=== PATIENT | male | born 1940 | race Caucasian/White ===

== ENCOUNTER 2016-12-18 21:23 | Inpatient (IN) | payer OTHER ==
[~2016-12-18] VITALS: Ht 172.7 cm; Wt 108.0 kg
[~2016-12-18 21:23] MED LIST: ASPI-435 PO; B-COTAB18 PO; BYTI10 SC; GLC500 PO; GLUCPOW41 PO; INSDGI SC; LOSA100T26 PO; MULTTAB58 PO; SIMV40TA2 PO
[2016-12-18] MEDS ORDERED: CEFTRIAXONE SOD INJ 1 GM ADDVIAL IV STA (21:42)
[2016-12-18] MEDS ORDERED: DIPHTHERIA/TETANUS/PERTUSSIS 0.5 ML SYR/VIAL IM. ONE (21:45)
[2016-12-18] MEDS ORDERED: EXEN1INJ3 INJ (21:48)
[2016-12-18] MEDS ORDERED: ATOR-24 PO (21:48)
[2016-12-18] MEDS ORDERED: METF-384 PO (21:48)
[2016-12-18] MEDS ORDERED: METO50TA16 PO (21:48)
[2016-12-18] MEDS ORDERED: HYZ/50125 PO (21:48)
[2016-12-18 22:34] LABS: BASO % 0.7 %; BASO ABS # 0.06 K/uL (0-0.2); COMPLETE YES; EOS % 3.7 %; HEMATOCRIT 36.9 % (42-52); IG% 0.3 %; LYMPH % 22.2 %; LYMPH ABS # 2.04 K/uL (1.2-3.4); MEAN CELL VOLUME 87.2 fL (80-100); MEAN CORPUSCULAR HEMOGLOBIN 28.6 pg (25-34); MEAN CORPUSCULAR HGB CONC 32.8 g/dl (32-36); MEAN PLATELET VOLUME 10.2 fL (7.4-10.4); MONO % 6.2 %; NEUT % 66.9 %; PLATELET COUNT 300 K/uL (130-400); RED BLOOD COUNT 4.23 M/uL (4.7-6.1); WHITE BLOOD COUNT 9.19 K/uL (4.8-10.8)
[2016-12-18 22:37] LABS: PROTHROMBIN TIME (PATIENT) 10.5 SECONDS (9.0-12.0)
[2016-12-18 22:54] LABS: CALCIUM 8.8 mg/dl (8.5-10.1); CREATININE 0.86 mg/dl (0.60-1.40); POTASSIUM 3.7 mmol/L (3.5-5.1)
[2016-12-18 22:57] LABS: ALB/GLOB RATIO 0.9 (0.9-2)
--- NOTE | 2016-12-18 23:15 | DIAGNOSTIC IMAGING REPORT ---
LEFT TIBIA/FIBULA 2 VIEWS ROUTINE, LEFT ANKLE MIN 3 VIEWS ROUTINE CLINICAL HISTORY: Left leg and ankle injury with pain. COMPARISON STUDY: None. FINDINGS: No acute fracture or dislocation. Mild vascular calcification. Surgical clips along the medial lower leg. Mild soft tissue edema throughout the lower leg and ankle. Punctate ossific densities adjacent to the medial malleolus are consistent with old avulsion injuries. Plantar and posterior calcaneal spurs. IMPRESSION: Mild soft tissue edema within the left lower leg and left ankle. No acute fracture or dislocation. Electronically signed by: Jordy Ayala M.D. 12/18/2016 11:14 PM Dictated Date/Time: 12/18/2016 11:11 PM
[2016-12-19] MEDS ORDERED: CEPHALEXIN 500MG HOME PACK 1 EA BTL PO ONE (00:30)
[2016-12-19] MEDS ORDERED: SEPTRA DS HOME PACK 1 EA VIAL PO ONE (00:30)
--- NOTE | 2016-12-19 00:33 | EMERGENCY ROOM VISIT NOTE ---
ED Visit Note First contact with patient: 21:31 Patient seen by me, patient has a leg wound is a diabetic; has a left lower extremity infection and has been on outpatient antibiotics. Patient has worsening erythema and weepiness. I reviewed the patient's lab work. Patient was given IV Rocephin by the physician assistant front desk manager. On my assessment I would recommend admission for cellulitis to the affected the patient's diabetic in this wound is not improving after outpatient antibiotics. Patient will be admitted for further treatment and we will add vancomycin as well Current/Historical Medications Scheduled Aspirin (Aspirin 81), 81 MG PO DAILY Atorvastatin (Lipitor), 40 MG PO DAILY B-Complex Vitamins (Vitamin B Complex), 1 CAP PO MWF Exenatide (Bydureon), 1 DOSE INJ WK Hctz/Losartan (Hyzaar 12.5MG/50MG), 1 TAB PO DAILY Metformin Hcl (Glucophage), 1,000 MG PO BID Metoprolol Tartrate (Lopressor) (Lopressor), 50 MG PO BID Allergies Coded Allergies: No Known Allergies (Unverified , 08/16/06) Vital Signs Date Time Temp Pulse Resp B/P (MAP) Pulse Ox O2 Delivery O2 Flow Rate FiO2 12/18/16 23:01 83 19 133/53 96 Room Air 12/18/16 22:30 84 20 143/62 95 Room Air 12/18/16 22:26 84 12/18/16 22:15 86 24 134/65 97 Room Air 12/18/16 22:00 97 Room Air 12/18/16 21:28 36.8 90 20 154/78 96 Room Air Laboratory Results 12/18/16 22:10 Red Blood Count 4.23, Mean Corpuscular Volume 87.2, Mean Corpuscular Hemoglobin 28.6, Mean Corpuscular Hemoglobin Concent 32.8, Mean Platelet Volume 10.2, Neutrophils (%) (Auto) 66.9, Lymphocytes (%) (Auto) 22.2, Monocytes (%) (Auto) 6.2, Eosinophils (%) (Auto) 3.7, Basophils (%) (Auto) 0.7, Neutrophils # (Auto) 6.15, Lymphocytes # (Auto) 2.04, Monocytes # (Auto) 0.57, Eosinophils # (Auto) 0.34, Basophils # (Auto) 0.06 12/18/16 22:10 Test 12/18/16 22:10 White Blood Count 9.19 K/uL (4.8-10.8) Red Blood Count 4.23 M/uL (4.7-6.1) Hemoglobin 12.1 g/dL (14.0-18.0) Hematocrit 36.9 % (42-52) Mean Corpuscular Volume 87.2 fL (80-100) Mean Corpuscular Hemoglobin 28.6 pg (25-34) Mean Corpuscular Hemoglobin Concent 32.8 g/dl (32-36) Platelet Count 300 K/uL (130-400) Mean Platelet Volume 10.2 fL (7.4-10.4) Neutrophils (%) (Auto) 66.9 % Lymphocytes (%) (Auto) 22.2 % Monocytes (%) (Auto) 6.2 % Eosinophils (%) (Auto) 3.7 % Basophils (%) (Auto) 0.7 % Neutrophils # (Auto) 6.15 K/uL (1.4-6.5) Lymphocytes # (Auto) 2.04 K/uL (1.2-3.4) Monocytes # (Auto) 0.57 K/uL (0.11-0.59) Eosinophils # (Auto) 0.34 K/uL (0-0.5) Basophils # (Auto) 0.06 K/uL (0-0.2) RDW Standard Deviation 42.7 fL (36.4-46.3) RDW Coefficient of Variation 13.4 % (11.5-14.5) Immature Granulocyte % (Auto) 0.3 % Immature Granulocyte # (Auto) 0.03 K/uL (0.00-0.02) Prothrombin Time 10.5 SECONDS (9.0-12.0) Prothromb Time International Ratio 1.0 (0.9-1.1) Activated Partial Thromboplast Time 27.2 SECONDS (21.0-31.0) Partial Thromboplastin Ratio 1.0 Anion Gap 8.0 mmol/L (3-11) Est Creatinine Clear Calc Drug Dose 88.0 ml/min Estimated GFR () 98.3 Estimated GFR (Non- 84.8 BUN/Creatinine Ratio 18.0 (10-20) Calcium Level 8.8 mg/dl (8.5-10.1) Total Bilirubin 0.3 mg/dl (0.2-1) Aspartate Amino Transf (AST/SGOT) 14 U/L (15-37) Alanine Aminotransferase (ALT/SGPT) 22 U/L (12-78) Alkaline Phosphatase 99 U/L (45-117) Total Protein 6.8 gm/dl (6.4-8.2) Albumin 3.2 gm/dl (3.4-5.0) Globulin 3.6 gm/dl (2.5-4.0) Albumin/Globulin Ratio 0.9 (0.9-2) Medications Administered Medications (Trade) Dose Ordered Sig/Irina Route Start Time Stop Time Status Last Admin Dose Admin Diphtheria/ Pertussis/Tetanus Vacc (Adacel Inj) 0.5 ml ONCE ONCE IM. 12/18/16 21:45 12/18/16 21:46 DC 12/18/16 22:12 0.5 ML Ceftriaxone Sodium (Rocephin Inj) 1 gm NOW STAT IV 12/18/16 21:42 12/18/16 21:44 DC 12/18/16 22:11 1 GM Departure Information Referrals Ancelmo Grimes M.D. (PCP) Patient Instructions My [facility]
[2016-12-19] MEDS ORDERED: VANCOMYCIN INJ 2,000 MG in SODIUM CHLORIDE 0.9% 500ML 500 ML IV STA (00:41)
--- NOTE | 2016-12-19 01:41 | EMERGENCY ROOM VISIT NOTE ---
History First contact with patient: 21:31 Chief Complaint: WOUND INFECTION Stated Complaint: PAIN IN LEFT LEG, INJURED Nursing Triage Summary: chirag fell on L almeida on Thursday. now with redness to L almeida and leg. scabbed area length of almeida. dry History of Present Illness The patient is a 76 year old male who presents to the Emergency Room with complaints of left lower leg pain and swelling after a block dropped on his leg a few days ago that caused an abrasion to the area. No prior fracture to this area. Blood sugars have been around 120. Tetanus is not current. He is around grandchildren that are less than 6 years of age. Patient denies chest pain, dyspnea, fever, chills, numbness, tingling, abdominal pain, vomiting, diarrhea. No history DVT or PE. Review of Systems See HPI for pertinent positives & negatives. A total of 10 systems reviewed and were otherwise negative. Past Medical/Surgical History Medical Problems: (1) Cellulitis Diabetes, hypertension, hyperlipidemia, aortic valve replacement not on anticoagulation Social History Smoking Status: Current Every Day Smoker Alcohol Use: none Drug Use: none Occupation Status: retired Current/Historical Medications Scheduled Aspirin (Aspirin 81), 81 MG PO DAILY Atorvastatin (Lipitor), 40 MG PO DAILY B-Complex Vitamins (Vitamin B Complex), 1 CAP PO MWF Exenatide (Bydureon), 1 DOSE INJ WK Hctz/Losartan (Hyzaar 12.5MG/50MG), 1 TAB PO DAILY Metformin Hcl (Glucophage), 1,000 MG PO BID Metoprolol Tartrate (Lopressor) (Lopressor), 50 MG PO BID Physical Exam Vital Signs Date Time Temp Pulse Resp B/P (MAP) Pulse Ox O2 Delivery O2 Flow Rate FiO2 12/19/16 01:10 77 20 129/61 96 Room Air 12/19/16 00:01 82 24 126/61 97 Room Air 12/18/16 23:06 85 26 133/53 96 Room Air 12/18/16 23:01 83 19 133/53 96 Room Air 12/18/16 22:30 84 20 143/62 95 Room Air 12/18/16 22:26 84 12/18/16 22:15 86 24 134/65 97 Room Air 12/18/16 22:00 97 Room Air 12/18/16 21:28 36.8 90 20 154/78 96 Room Air Physical Exam VITALS: Vitals are noted on the nurse's note and reviewed by myself. Vital signs stable. GENERAL: Pleasant male, in no acute distress, nondiaphoretic, well-developed well-nourished. SKIN: The skin was without rashes . There is no tenting of the skin. Capillary reflex less than 2 seconds. HEAD: Normocephalic atraumatic. EARS: External auditory canals clear, tympanic membranes pearly gentile without erythema or effusion bilaterally. EYES: Pupils equal round and reactive to light and accommodation. Conjunctivae without injection, sclerae without icterus. Extraocular movements intact. NOSE: Patent, turbinates without inflammation or discharge. MOUTH: Mucous membranes moist. Pharynx without erythema or exudate. Uvula midline. Airway patent. Tongue does not deviate. NECK: Supple without nuchal rigidity. No lymphadenopathy. No thyromegaly. Cervical spine is nontender. No JVD. HEART: Regular rate and rhythm LUNGS: Clear to auscultation bilaterally without wheezes, rales or rhonchi. No dullness to percussion. No retractions or accessory muscle use. ABDOMEN: Positive bowel sounds x 4. Normal tympanic percussion. Soft, nontender, without masses or organomegaly. Tinajero sign negative. No guarding or rebound tenderness. MUSCULOSKELETAL: No muscle atrophy, noted. Left lower leg with large abrasion present that is erythematous and edematous concerning for infection with contusion present ,slightly edematous to the ankle that is tender to palpation from the mid tib-fib down to the ankle with no obvious deformity. Pedal pulses +2 equal present bilaterally. Right anterior midshin with abrasion present without signs of infection. NEURO: Patient was alert and oriented to person place and time. Normal sensation to light and sharp touch. No focal neurological deficits. Medical Decision & Procedures Laboratory Results 12/18/16 22:10 Red Blood Count 4.23, Mean Corpuscular Volume 87.2, Mean Corpuscular Hemoglobin 28.6, Mean Corpuscular Hemoglobin Concent 32.8, Mean Platelet Volume 10.2, Neutrophils (%) (Auto) 66.9, Lymphocytes (%) (Auto) 22.2, Monocytes (%) (Auto) 6.2, Eosinophils (%) (Auto) 3.7, Basophils (%) (Auto) 0.7, Neutrophils # (Auto) 6.15, Lymphocytes # (Auto) 2.04, Monocytes # (Auto) 0.57, Eosinophils # (Auto) 0.34, Basophils # (Auto) 0.06 12/18/16 22:10 Test 12/18/16 22:10 White Blood Count 9.19 K/uL (4.8-10.8) Red Blood Count 4.23 M/uL (4.7-6.1) Hemoglobin 12.1 g/dL (14.0-18.0) Hematocrit 36.9 % (42-52) Mean Corpuscular Volume 87.2 fL (80-100) Mean Corpuscular Hemoglobin 28.6 pg (25-34) Mean Corpuscular Hemoglobin Concent 32.8 g/dl (32-36) Platelet Count 300 K/uL (130-400) Mean Platelet Volume 10.2 fL (7.4-10.4) Neutrophils (%) (Auto) 66.9 % Lymphocytes (%) (Auto) 22.2 % Monocytes (%) (Auto) 6.2 % Eosinophils (%) (Auto) 3.7 % Basophils (%) (Auto) 0.7 % Neutrophils # (Auto) 6.15 K/uL (1.4-6.5) Lymphocytes # (Auto) 2.04 K/uL (1.2-3.4) Monocytes # (Auto) 0.57 K/uL (0.11-0.59) Eosinophils # (Auto) 0.34 K/uL (0-0.5) Basophils # (Auto) 0.06 K/uL (0-0.2) RDW Standard Deviation 42.7 fL (36.4-46.3) RDW Coefficient of Variation 13.4 % (11.5-14.5) Immature Granulocyte % (Auto) 0.3 % Immature Granulocyte # (Auto) 0.03 K/uL (0.00-0.02) Prothrombin Time 10.5 SECONDS (9.0-12.0) Prothromb Time International Ratio 1.0 (0.9-1.1) Activated Partial Thromboplast Time 27.2 SECONDS (21.0-31.0) Partial Thromboplastin Ratio 1.0 Anion Gap 8.0 mmol/L (3-11) Est Creatinine Clear Calc Drug Dose 88.0 ml/min Estimated GFR () 98.3 Estimated GFR (Non- 84.8 BUN/Creatinine Ratio 18.0 (10-20) Calcium Level 8.8 mg/dl (8.5-10.1) Total Bilirubin 0.3 mg/dl (0.2-1) Aspartate Amino Transf (AST/SGOT) 14 U/L (15-37) Alanine Aminotransferase (ALT/SGPT) 22 U/L (12-78) Alkaline Phosphatase 99 U/L (45-117) Total Protein 6.8 gm/dl (6.4-8.2) Albumin 3.2 gm/dl (3.4-5.0) Globulin 3.6 gm/dl (2.5-4.0) Albumin/Globulin Ratio 0.9 (0.9-2) Medications Administered Medications (Trade) Dose Ordered Sig/Irina Route Start Time Stop Time Status Last Admin Dose Admin Diphtheria/ Pertussis/Tetanus Vacc (Adacel Inj) 0.5 ml ONCE ONCE IM. 12/18/16 21:45 12/18/16 21:46 DC 12/18/16 22:12 0.5 ML Ceftriaxone Sodium (Rocephin Inj) 1 gm NOW STAT IV 12/18/16 21:42 12/18/16 21:44 DC 12/18/16 22:11 1 GM Vancomycin HCl 2000 mg/Sodium Chloride 540 ml @ 200 mls/hr ONE STAT IV 12/19/16 00:41 12/19/16 03:22 12/19/16 01:30 200 MLS/HR ED Course Prior records reviewed and summarized as above. Triage Nursing notes reviewed. Additional history obtained from family. The patient's history was concerning for swelling and redness of the skin. Differential diagnosis: Etiologies such as cellulitis, abscess, MRSA infection, DVT, necrotizing fasciitis, dermatitis, drug eruption, as well as others were entertained.. Physical examination: The physical examination was consistent with cellulitis ER treatment provided: Rocephin, tetanus On reassessment the patient felt better. Diagnostics interpreted by me: The labs revealed hyperglycemia without DKA Imaging studies: X-rays of the almeida and ankle are negative for fracture per radiology. Ultrasound was negative for DVT per radiology Consultation: A consultation was placed with Dr Shaw, hospitalist. The case was discussed and diagnostics were reviewed. The patient was evaluated in the ER for further treatment. This appears to be isolated cellulitis. Patient is diabetic and will be evaluated for possible admission. He was given Rocephin and vancomycin. His blood sugars are slightly elevated without DKA. By the evaluation outlined above emergent etiologies such as abscess, necrotizing fasciitis, DVT, as well as others were deemed relatively unlikely. The pt informed about the findings as listed above. All questions were answered and pleased with the treatment. Case reviewed with my attending. Medical Decision as above Medication Reconcilliation Current Medication List: was personally reviewed by me Blood Pressure Screening Patient's blood pressure: Elevated blood pressure Blood pressure disposition: Elevated BP felt to be situational Impression Primary Impression: Left leg cellulitis Additional Impression: Infected abrasion Departure Information Dispostion Being Evaluated By Hospitalist Condition GOOD Referrals Ancelmo Grimes M.D. (PCP) Patient Instructions My [facility] Additional Instructions Problem Qualifiers
[2016-12-19] MEDS ORDERED: ACETAMINOPHEN 325 MG TAB PO PRN (01:45)
[2016-12-19] MEDS ORDERED: GLUCAGON FOR INJ 1 MG VIAL SQ PRN (02:00)
[2016-12-19] MEDS ORDERED: GLUCOSE 40% GEL 15 GM TUBE PO PRN (02:00)
[2016-12-19] MEDS ORDERED: GLUCOSE 10 TABS/TUBE PO PRN (02:00)
[2016-12-19] MEDS ORDERED: DEXTROSE 50% 50 ML SYR IV PRN (02:00)
[2016-12-19 02:03] VITALS: BP 135/72; PULSE 74; TEMP 36.9; O2SAT 98; Ht 172.7 cm; Wt 108.0 kg
[2016-12-19] MEDS ORDERED: SODIUM CHLORIDE 0.9% 1000ML 1,000 ML IV SCH (02:45)
[2016-12-19] MEDS ORDERED: VANCOMYCIN CONSULT ACTIVE PRN (03:13)
[2016-12-19] MEDS ORDERED: PIPERACILL/TAZOBAC CONSULT ACTIVE PRN (03:15)
[2016-12-19] MEDS ORDERED: PIPERACILL/TAZOBAC IV 4.5 GM in DEXTROSE 5% 100ML IV ONE (04:00)
[2016-12-19] MEDS ORDERED: PNEUMOCOCCAL ADMINISTRATION CHARGE ONE ×2 (05:15→08:00)
[2016-12-19] MEDS: HEPARIN SOD 5000 UNIT/0.5 ML CARP SQ SCH ×3 (06:00→20:46)
--- NOTE | 2016-12-19 06:35 | DIAGNOSTIC IMAGING REPORT ---
ULTRASOUND VENOUS DOPP LOWER EXT UNILAT CLINICAL HISTORY: 6 left lower extremity swelling. Pain. COMPARISON STUDY: No previous studies for comparison. FINDINGS: Real-time and color flow Doppler imaging were performed. Flow was seen within the femoral, popliteal and calf veins with no intraluminal thrombus demonstrated. The saphenous vein is patent. IMPRESSION: No evidence of left lower extremity DVT. Electronically signed by: Husam Demarco M.D. 12/19/2016 6:34 AM Dictated Date/Time: 12/19/2016 6:34 AM
[2016-12-19] MEDS: PIPERACILL/TAZOBAC IV 4.5 GM in DEXTROSE 5% 100ML IV SCH ×2 (07:25→15:37)
[2016-12-19 07:49] VITALS: BP 131/74; PULSE 77; TEMP 36.5; O2SAT 96
[2016-12-19 08:00] VITALS: O2SAT 96
[2016-12-19] MEDS ORDERED: PNEUMOCOCCAL POLYSACCHARIDES 25 MCG/0.5 ML VIAL/SYR IM. ONE (08:00)
--- NOTE | 2016-12-19 08:27 | History and Physical ---
History & Physical Date & Time of Service: Dec 19, 2016 at 08:17 Chief Complaint: Cellulitis Primary Care Physician: Ancelmo Grimes M.D. History of Present Illness Source: patient, clinic records, hospital records 76 year old male with history of CAD, CABG, S/P Aortic Valve repair, DM presenting with nonhealing wound and lower leg swelling on the left. 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 He sustained wounds on his anterior left lower leg, for which patient applies dressings and topical ointment at home. He noticed that the wound was healing slowly, with occasional discharge, and was getting more red, swollen, and painful, to the point that he is unable to walk properly due to left ankle discomfort. He was then advised to go to ER by his family. At the ER, patient was febrile, no leukocytosis, xray of the left lower leg and foot without fractures. On exam, patient is comfortable. Moderate pain on the affected areas. Denies other symptoms. Family History Cancer- mother, DM father Social History Smoking Status: Former Smoker Drug Use: none Occupational Status: retired Multi-Drug Resistant Organisms History of MDRO: No Allergies Coded Allergies: No Known Allergies (Unverified , 08/16/06) Home Medications Scheduled Aspirin (Aspirin 81), 81 MG PO DAILY Atorvastatin (Lipitor), 40 MG PO DAILY B-Complex Vitamins (Vitamin B Complex), 1 CAP PO MWF Exenatide (Bydureon), 1 DOSE INJ WK Hctz/Losartan (Hyzaar 12.5MG/50MG), 1 TAB PO DAILY Metformin Hcl (Glucophage), 1,000 MG PO BID Metoprolol Tartrate (Lopressor) (Lopressor), 50 MG PO BID Review of Systems Constitutional- no fever; no weight loss Eyes- no acute visual changes ENT- no sinus drainage; no pharyngitis Pulmonary- no cough, no wheezing, no shortness of breath Cardiac- no chest pain, no palpitations, no orthopnea, no dependent edema GI- no nausea, no vomiting, no diarrhea, no melena, no hematochezia - no dysuria, no hematuria Musculoskeletal- no arthralgias, no myalgias Derm- no rashes, no new skin lesions, no changing skin lesions Hematologic- no unusual bruising, no unusual bleeding Lymphatics- no adenopathy Endocrine- no polyuria or polydipsia; no heat or cold intolerance Neuro- no headaches, no focal neurologic symptoms Psych- no anxiety, no depression Physical Exam Vital Signs Date Time Temp Pulse Resp B/P (MAP) Pulse Ox O2 Delivery O2 Flow Rate FiO2 12/19/16 07:49 36.5 77 18 131/74 (93) 96 12/19/16 02:03 36.9 74 16 135/72 98 Room Air 12/19/16 02:00 37.0 77 20 136/78 98 Room Air 12/19/16 01:10 77 20 129/61 96 Room Air 12/19/16 00:01 82 24 126/61 97 Room Air 12/18/16 23:06 85 26 133/53 96 Room Air 12/18/16 23:01 83 19 133/53 96 Room Air 12/18/16 22:30 84 20 143/62 95 Room Air 12/18/16 22:26 84 12/18/16 22:15 86 24 134/65 97 Room Air 12/18/16 22:00 97 Room Air 12/18/16 21:28 36.8 90 20 154/78 96 Room Air General Appearance: WD/WN, no apparent distress Head: normocephalic, atraumatic Eyes: normal inspection, EOMI, sclerae normal ENT: normal ENT inspection, hearing grossly normal, pharynx normal Neck: supple, no adenopathy, thyroid normal, no JVD, trachea midline Respiratory/Chest: chest non-tender, lungs clear, normal breath sounds, no respiratory distress, no accessory muscle use Cardiovascular: regular rate, rhythm, no edema, no gallop, no murmur Abdomen/GI: normal bowel sounds, non tender, soft, no organomegaly Back: normal inspection, no CVA tenderness Extremities/Musculoskelatal: + pertinent finding (left lower leg: (+) open wounds on the anterior aspect, no discharge with surrounding moderate edema and erythema, (+) tenderness) Neurologic/Psych: division supervisor II-XII nml as tested, no motor/sensory deficits, alert, normal mood/affect, oriented x 3 Skin: normal color, warm/dry, no rash Lymphatic: no adenopathy Diagnostics Laboratory Results Results Past 24 Hours Test 12/18/16 22:10 12/19/16 06:59 Range/Units White Blood Count 9.19 4.8-10.8 K/uL Red Blood Count 4.23 4.7-6.1 M/uL Hemoglobin 12.1 14.0-18.0 g/dL Hematocrit 36.9 42-52 % Mean Corpuscular Volume 87.2 80-100 fL Mean Corpuscular Hemoglobin 28.6 25-34 pg Mean Corpuscular Hemoglobin Concent 32.8 32-36 g/dl Platelet Count 300 130-400 K/uL Mean Platelet Volume 10.2 7.4-10.4 fL Neutrophils (%) (Auto) 66.9 % Lymphocytes (%) (Auto) 22.2 % Monocytes (%) (Auto) 6.2 % Eosinophils (%) (Auto) 3.7 % Basophils (%) (Auto) 0.7 % Neutrophils # (Auto) 6.15 1.4-6.5 K/uL Lymphocytes # (Auto) 2.04 1.2-3.4 K/uL Monocytes # (Auto) 0.57 0.11-0.59 K/uL Eosinophils # (Auto) 0.34 0-0.5 K/uL Basophils # (Auto) 0.06 0-0.2 K/uL RDW Standard Deviation 42.7 36.4-46.3 fL RDW Coefficient of Variation 13.4 11.5-14.5 % Immature Granulocyte % (Auto) 0.3 % Immature Granulocyte # (Auto) 0.03 0.00-0.02 K/uL Prothrombin Time 10.5 9.0-12.0 SECONDS Prothromb Time International Ratio 1.0 0.9-1.1 Activated Partial Thromboplast Time 27.2 21.0-31.0 SECONDS Partial Thromboplastin Ratio 1.0 Sodium Level 137 136-145 mmol/L Potassium Level 3.7 3.5-5.1 mmol/L Chloride Level 101 98-107 mmol/L Carbon Dioxide Level 28 21-32 mmol/L Anion Gap 8.0 3-11 mmol/L Blood Urea Nitrogen 16 7-18 mg/dl Creatinine 0.86 0.60-1.40 mg/dl Est Creatinine Clear Calc Drug Dose 88.0 ml/min Estimated GFR () 98.3 Estimated GFR (Non- 84.8 BUN/Creatinine Ratio 18.0 10-20 Random Glucose 240 70-99 mg/dl Calcium Level 8.8 8.5-10.1 mg/dl Total Bilirubin 0.3 0.2-1 mg/dl Aspartate Amino Transf (AST/SGOT) 14 15-37 U/L Alanine Aminotransferase (ALT/SGPT) 22 12-78 U/L Alkaline Phosphatase 99 45-117 U/L Total Protein 6.8 6.4-8.2 gm/dl Albumin 3.2 3.4-5.0 gm/dl Globulin 3.6 2.5-4.0 gm/dl Albumin/Globulin Ratio 0.9 0.9-2 Bedside Glucose 161 70-99 mg/dl Microbiology Results 12/19/16 Blood Culture, Received Pending 12/19/16 Blood Culture, Received Pending 12/19/16 Gram Stain, Received Pending 12/19/16 Wound Culture, Received Pending Impression Assessment and Plan 76 year old male with history of CAD, CABG, S/P Aortic Valve repair, DM presenting with nonhealing wound and lower leg swelling on the left. 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 Y/N: Yes Risk Level: Moderate Given or contraindicated: Unfractionated heparin SQ
[2016-12-19] MEDS: ATORVASTATIN 20 MG TAB PO SCH (08:31)
[2016-12-19] MEDS: ASPIRIN 81 MG ECTAB PO SCH (08:32)
[2016-12-19] MEDS: INSULIN ASPART 100 UNITS/ML 3 ML PEN SC SCH ×4 (08:34→20:38)
[2016-12-19] MEDS: METOPROLOL TARTRATE 50 MG TAB PO SCH ×2 (08:35→19:39)
--- NOTE | 2016-12-19 09:28 | Pharmacy Progress Note ---
Pharmacy Antibiotic Consult Date of Service: Dec 19, 2016. Pharmacy Dosing Scope Pharmacy is consulted to initiate vancomycin/zosyn IV dosing therapy, order appropriate labs and adjust drug dose/frequency. Subjective The patient is a 76 year old male admitted on Dec 19, 2016 at 01:38. Objective Height (Feet): 5 Height (Inches): 8.00 Weight (Kilograms): 108.000 Lab Results (24hrs): Test 12/18/16 22:10 12/19/16 06:59 White Blood Count 9.19 K/uL (4.8-10.8) Red Blood Count 4.23 M/uL (4.7-6.1) Hemoglobin 12.1 g/dL (14.0-18.0) Hematocrit 36.9 % (42-52) Mean Corpuscular Volume 87.2 fL (80-100) Mean Corpuscular Hemoglobin 28.6 pg (25-34) Mean Corpuscular Hemoglobin Concent 32.8 g/dl (32-36) Platelet Count 300 K/uL (130-400) Mean Platelet Volume 10.2 fL (7.4-10.4) Neutrophils (%) (Auto) 66.9 % Lymphocytes (%) (Auto) 22.2 % Monocytes (%) (Auto) 6.2 % Eosinophils (%) (Auto) 3.7 % Basophils (%) (Auto) 0.7 % Neutrophils # (Auto) 6.15 K/uL (1.4-6.5) Lymphocytes # (Auto) 2.04 K/uL (1.2-3.4) Monocytes # (Auto) 0.57 K/uL (0.11-0.59) Eosinophils # (Auto) 0.34 K/uL (0-0.5) Basophils # (Auto) 0.06 K/uL (0-0.2) RDW Standard Deviation 42.7 fL (36.4-46.3) RDW Coefficient of Variation 13.4 % (11.5-14.5) Immature Granulocyte % (Auto) 0.3 % Immature Granulocyte # (Auto) 0.03 K/uL (0.00-0.02) Prothrombin Time 10.5 SECONDS (9.0-12.0) Prothromb Time International Ratio 1.0 (0.9-1.1) Activated Partial Thromboplast Time 27.2 SECONDS (21.0-31.0) Partial Thromboplastin Ratio 1.0 Sodium Level 137 mmol/L (136-145) Potassium Level 3.7 mmol/L (3.5-5.1) Chloride Level 101 mmol/L (98-107) Carbon Dioxide Level 28 mmol/L (21-32) Anion Gap 8.0 mmol/L (3-11) Blood Urea Nitrogen 16 mg/dl (7-18) Creatinine 0.86 mg/dl (0.60-1.40) Est Creatinine Clear Calc Drug Dose 88.0 ml/min Estimated GFR () 98.3 Estimated GFR (Non- 84.8 BUN/Creatinine Ratio 18.0 (10-20) Random Glucose 240 mg/dl (70-99) Calcium Level 8.8 mg/dl (8.5-10.1) Total Bilirubin 0.3 mg/dl (0.2-1) Aspartate Amino Transf (AST/SGOT) 14 U/L (15-37) Alanine Aminotransferase (ALT/SGPT) 22 U/L (12-78) Alkaline Phosphatase 99 U/L (45-117) Total Protein 6.8 gm/dl (6.4-8.2) Albumin 3.2 gm/dl (3.4-5.0) Globulin 3.6 gm/dl (2.5-4.0) Albumin/Globulin Ratio 0.9 (0.9-2) Bedside Glucose 161 mg/dl (70-99) Micro Results: Date/Time Source Procedure Growth Status 12/19/16 06:03 Blood Blood Culture Pending Received 12/19/16 05:50 Blood Blood Culture Pending Received 12/19/16 06:05 Drainage - Surface Leg Lower Left Gram Stain Pending Received 12/19/16 06:05 Drainage - Surface Leg Lower Left Wound Culture Pending Received Assessment & Plan Assessment: Patient is 76 yo male with history of CAD, CABG, Aortic valve repair, DM admitted for a nonhealing wound and LLE swelling. Patient was treating outpatient with topical ointment and dressing. Vancomycin/zosyn initiated for antibiotic coverage. Patient Ht 172.7 cm, Wt 108 kg, Vdf 0.6, SCr 0.86, CrCl 71.8, Ke 0.064, T1/2 ~ 11 hours. Plan: * Loading dose 2000 mg (18.5 mg/kg) * Maintenance dose: 1250 mg q12H (11.5 mg/kg) * less than traditional dose due to risk of accumulation * Goal trough level estimate 15-20 mcg/mL * Trough level ordered for 12/20 @ 2330 * Zosyn 4.5 gm q8H for CrCl >20 mL/min Pharmacy will continue to follow and will adjust dose/frequency as necessary. Thank you
[2016-12-19 10:39] VITALS: BP 146/71; PULSE 75; O2SAT 98
[2016-12-19] MEDS: VANCOMYCIN INJ 1,250 MG in SODIUM CHLORIDE 0.9% 250ML 250 ML IV SCH (11:37)
[2016-12-19] MEDS ORDERED: NURSING VERBAL MED ORDER ONE (15:00)
[2016-12-19 15:15] VITALS: BP 134/69; PULSE 72; TEMP 36.6; O2SAT 98
--- NOTE | 2016-12-19 17:20 | Progress Note ---
Internal Med Progress Note Date of Service: Dec 19, 2016. Provider Documentation: SUBJECTIVE: feels much better , no pain or discomfort on left leg the redness has improved able to walk and bear wt no fever or chills OBJECTIVE: Vital Signs-as noted below Exam: General-no sign of distress Eyes-sclera non icteric ENT-NAD Neck-no JVD , Lungs-CTA Heart-regular s1/S2 Abdomen-soft , non tender Extremities-left lower ext : crusted healing lesion on left knee, wound on left lower leg -no drainage , bandage present , mild surrounding erythema Neuro-AAO x3, no focal deficit Lab data as noted below. ASSESSMENT & PLAN: 76 year old male with history of CAD, CABG, S/P Aortic Valve repair, DM presenting with nonhealing wound and lower leg swelling on the left. INFECTED LEFT LOWER WOUND, WITH CELLULITIS -had traumatic injury > 1 week back presented with non healing wound , surrounding erythema with evidence of cellulitis - no signs of sepsis - Xray: no fracture - wound and blood cultures ordered - pt will be continued with IV broad spectrum Abx Vanc + Zosyn IV till further improvement of cellulitis plan to transition to suitable oral agent in next 24-48 hrs will need 10 days of tx - wound care consulted-appreciate input PT/OT CAD/CABG, History of Aortic Valve Replacement - stable, no complain of chest pain or SOB , no palpitation or dizzy spell continue Metoprolol, Losartan, hold HCTZ continue Aspirin, Statin DM 2 - hold Exenatide, Metformin - ISS Heparin for DVT prophylaxis Full code per patient Disposition independent, anticipate d/c home when medically stable Vital Signs: Date Time Temp Pulse Resp B/P (MAP) Pulse Ox O2 Delivery O2 Flow Rate FiO2 12/20/16 07:41 36.4 63 18 116/75 (89) 99 Room Air 12/20/16 07:17 36.8 76 16 166/67 (100) 97 Room Air 12/20/16 00:00 Room Air 12/19/16 23:44 36.7 74 20 132/68 (89) 97 Room Air 12/19/16 20:00 Room Air 12/19/16 16:00 Room Air 12/19/16 15:15 36.6 72 20 134/69 (90) 98 Room Air 12/19/16 10:39 75 98 Lab Results: Results Past 24 Hours Test 12/19/16 11:03 12/19/16 16:19 12/19/16 20:20 12/20/16 06:10 Range/Units Bedside Glucose 155 138 171 70-99 mg/dl White Blood Count 6.33 4.8-10.8 K/uL Red Blood Count 4.14 4.7-6.1 M/uL Hemoglobin 12.1 14.0-18.0 g/dL Hematocrit 35.8 42-52 % Mean Corpuscular Volume 86.5 80-100 fL Mean Corpuscular Hemoglobin 29.2 25-34 pg Mean Corpuscular Hemoglobin Concent 33.8 32-36 g/dl Platelet Count 264 130-400 K/uL Mean Platelet Volume 9.9 7.4-10.4 fL Neutrophils (%) (Auto) 62.2 % Lymphocytes (%) (Auto) 23.7 % Monocytes (%) (Auto) 7.4 % Eosinophils (%) (Auto) 4.9 % Basophils (%) (Auto) 1.3 % Neutrophils # (Auto) 3.94 1.4-6.5 K/uL Lymphocytes # (Auto) 1.50 1.2-3.4 K/uL Monocytes # (Auto) 0.47 0.11-0.59 K/uL Eosinophils # (Auto) 0.31 0-0.5 K/uL Basophils # (Auto) 0.08 0-0.2 K/uL RDW Standard Deviation 42.9 36.4-46.3 fL RDW Coefficient of Variation 13.4 11.5-14.5 % Immature Granulocyte % (Auto) 0.5 % Immature Granulocyte # (Auto) 0.03 0.00-0.02 K/uL Sodium Level 139 136-145 mmol/L Potassium Level 4.0 3.5-5.1 mmol/L Chloride Level 106 98-107 mmol/L Carbon Dioxide Level 27 21-32 mmol/L Anion Gap 6.0 3-11 mmol/L Blood Urea Nitrogen 10 7-18 mg/dl Creatinine 0.76 0.60-1.40 mg/dl Est Creatinine Clear Calc Drug Dose 100.1 ml/min Estimated GFR () 103.4 Estimated GFR (Non- 89.2 BUN/Creatinine Ratio 12.8 10-20 Random Glucose 146 70-99 mg/dl Calcium Level 8.4 8.5-10.1 mg/dl Test 12/20/16 07:28 Range/Units Bedside Glucose 150 70-99 mg/dl
[2016-12-19] MEDS: INSULIN GLARGINE SOLOSTAR 100 UNITS/ML 3 ML PEN SC SCH (20:45)
[2016-12-19 23:44] VITALS: BP 132/68; PULSE 74; TEMP 36.7; O2SAT 97
[2016-12-20] MEDS: PIPERACILL/TAZOBAC IV 4.5 GM in DEXTROSE 5% 100ML IV SCH ×3 (00:30→15:46)
[2016-12-20] MEDS: VANCOMYCIN INJ 1,250 MG in SODIUM CHLORIDE 0.9% 250ML 250 ML IV SCH ×2 (00:30→12:14)
[2016-12-20] MEDS: HEPARIN SOD 5000 UNIT/0.5 ML CARP SQ SCH ×3 (06:20→20:11)
[2016-12-20 06:30] LABS: BASO % 1.3 %; BASO ABS # 0.08 K/uL (0-0.2); COMPLETE YES; EOS % 4.9 %; HEMATOCRIT 35.8 % (42-52); IG% 0.5 %; LYMPH % 23.7 %; MEAN CELL VOLUME 86.5 fL (80-100); MEAN CORPUSCULAR HEMOGLOBIN 29.2 pg (25-34); MEAN CORPUSCULAR HGB CONC 33.8 g/dl (32-36); MEAN PLATELET VOLUME 9.9 fL (7.4-10.4); MONO % 7.4 %; NEUT % 62.2 %; PLATELET COUNT 264 K/uL (130-400); RED BLOOD COUNT 4.14 M/uL (4.7-6.1); WHITE BLOOD COUNT 6.33 K/uL (4.8-10.8)
[2016-12-20 07:17] VITALS: BP 166/67; PULSE 76; TEMP 36.8; O2SAT 97
[2016-12-20 07:21] LABS: BUN/CREATININE RATIO 12.8 (10-20); CALCIUM 8.4 mg/dl (8.5-10.1); CREATININE 0.76 mg/dl (0.60-1.40)
[2016-12-20 07:41] VITALS: BP 116/75; PULSE 63; TEMP 36.4; O2SAT 99
[2016-12-20] MEDS: INSULIN ASPART 100 UNITS/ML 3 ML PEN SC SCH ×4 (09:09→20:10)
[2016-12-20] MEDS: ATORVASTATIN 20 MG TAB PO SCH (09:28)
[2016-12-20] MEDS: METOPROLOL TARTRATE 50 MG TAB PO SCH ×2 (09:29→20:01)
[2016-12-20] MEDS: ASPIRIN 81 MG ECTAB PO SCH (09:29)
[2016-12-20 15:47] VITALS: BP 159/77; PULSE 68; TEMP 37; O2SAT 98
--- NOTE | 2016-12-20 18:39 | Progress Note ---
Internal Med Progress Note Date of Service: Dec 20, 2016. Provider Documentation: SUBJECTIVE: left lower extremity cellulitis continues to improve no fever or chills surrounding redness has almost resolved OBJECTIVE: Vital Signs-as noted below Exam: General-no sign of distress Eyes-sclera non icteric ENT-NAD Neck-no JVD , Lungs-CTA Heart-regular s1/S2 Abdomen-soft , non tender Extremities-left lower ext : crusted healing lesion on left knee, wound on left lower leg -no drainage , resolution of surrounding erythema, Optifoam dressing present Neuro-AAO x3, no focal deficit Lab data as noted below. ASSESSMENT & PLAN: 76 year old male with history of CAD, CABG, S/P Aortic Valve repair, DM presenting with nonhealing wound and lower leg swelling on the left. INFECTED LEFT LOWER WOUND, WITH CELLULITIS -had traumatic injury > 1 week back presented with non healing wound , surrounding erythema with evidence of cellulitis - no signs of sepsis - Xray: no fracture pt continued on vancomycin and zosyn for a nonhealing cellulitis infection. Day # 3 of IV Abx Blood culture x 2 no growth, drainage of wound preliminary is growing staph species-sensitivity and isolation pending pt remained afebrile , no leukocytosis , clinically improvement noted on left lower ext cellulitis plan to transition to suitable oral agent in next 24-48 hrs will need 10-14 days of tx -preferably oral Abx - wound care consulted-appreciate input per Wound care nurse : THERE IS LARGE AREA OF ESCHAR LEFT CUELLO. TREAT WITH MOIST AQUACEL AG AND OPTIFOAM TO SOFTEN PT/OT CAD/CABG, History of Aortic Valve Replacement - stable, no complain of chest pain or SOB , no palpitation or dizzy spell continue Metoprolol, Losartan, hold HCTZ continue Aspirin, Statin DM 2 - hold Exenatide, Metformin-will be resumed on discharge - ISS Heparin for DVT prophylaxis Full code per patient Disposition independent, anticipate d/c home in next 1-2 days as medically stable Medicine follow up with Dr Ancelmo Grimes at [facility] will need home health visiting nurse for wound care at home Social service consulted for discharge planning Vital Signs: Date Time Temp Pulse Resp B/P (MAP) Pulse Ox O2 Delivery O2 Flow Rate FiO2 12/21/16 08:00 Room Air 12/21/16 07:14 36.7 73 16 158/78 (104) 96 Room Air 12/21/16 00:00 Room Air 12/20/16 23:03 36.9 70 20 135/71 (92) 95 Room Air 12/20/16 20:00 Room Air 12/20/16 16:00 Room Air 12/20/16 15:47 37.0 68 16 159/77 (104) 98 Room Air Lab Results: Results Past 24 Hours Test 12/20/16 16:38 12/20/16 19:58 12/20/16 23:36 12/21/16 06:30 Range/Units Bedside Glucose 111 193 70-99 mg/dl Vancomycin Level Trough 10.0 SEE COMMENT mcg/ml White Blood Count 7.56 4.8-10.8 K/uL Red Blood Count 4.55 4.7-6.1 M/uL Hemoglobin 12.7 14.0-18.0 g/dL Hematocrit 39.5 42-52 % Mean Corpuscular Volume 86.8 80-100 fL Mean Corpuscular Hemoglobin 27.9 25-34 pg Mean Corpuscular Hemoglobin Concent 32.2 32-36 g/dl Platelet Count 322 130-400 K/uL Mean Platelet Volume 10.0 7.4-10.4 fL Neutrophils (%) (Auto) 60.0 % Lymphocytes (%) (Auto) 27.0 % Monocytes (%) (Auto) 7.5 % Eosinophils (%) (Auto) 4.2 % Basophils (%) (Auto) 0.9 % Neutrophils # (Auto) 4.53 1.4-6.5 K/uL Lymphocytes # (Auto) 2.04 1.2-3.4 K/uL Monocytes # (Auto) 0.57 0.11-0.59 K/uL Eosinophils # (Auto) 0.32 0-0.5 K/uL Basophils # (Auto) 0.07 0-0.2 K/uL RDW Standard Deviation 42.6 36.4-46.3 fL RDW Coefficient of Variation 13.3 11.5-14.5 % Immature Granulocyte % (Auto) 0.4 % Immature Granulocyte # (Auto) 0.03 0.00-0.02 K/uL Sodium Level 138 136-145 mmol/L Potassium Level 4.0 3.5-5.1 mmol/L Chloride Level 104 98-107 mmol/L Carbon Dioxide Level 28 21-32 mmol/L Anion Gap 6.0 3-11 mmol/L Blood Urea Nitrogen 10 7-18 mg/dl Creatinine 0.73 0.60-1.40 mg/dl Est Creatinine Clear Calc Drug Dose 104.2 ml/min Estimated GFR () 105.2 Estimated GFR (Non- 90.7 BUN/Creatinine Ratio 13.2 10-20 Random Glucose 138 70-99 mg/dl Calcium Level 8.9 8.5-10.1 mg/dl Test 12/21/16 07:08 Range/Units Bedside Glucose 136 70-99 mg/dl
[2016-12-20] MEDS: INSULIN GLARGINE SOLOSTAR 100 UNITS/ML 3 ML PEN SC SCH (20:10)
[2016-12-20 23:03] VITALS: BP 135/71; PULSE 70; TEMP 36.9; O2SAT 95
[2016-12-20] MEDS ORDERED: VANCOMYCIN TROUGH ONE (23:30)
[2016-12-21] MEDS: VANCOMYCIN INJ 1,250 MG in SODIUM CHLORIDE 0.9% 250ML 250 ML IV SCH ×3 (00:32→23:16)
[2016-12-21] MEDS: PIPERACILL/TAZOBAC IV 4.5 GM in DEXTROSE 5% 100ML IV SCH ×4 (00:32→23:16)
[2016-12-21] MEDS: HEPARIN SOD 5000 UNIT/0.5 ML CARP SQ SCH ×3 (05:29→20:43)
[2016-12-21 07:09] LABS: BASO % 0.9 %; BASO ABS # 0.07 K/uL (0-0.2); COMPLETE YES; EOS % 4.2 %; HEMATOCRIT 39.5 % (42-52); IG% 0.4 %; LYMPH ABS # 2.04 K/uL (1.2-3.4); MEAN CELL VOLUME 86.8 fL (80-100); MEAN CORPUSCULAR HEMOGLOBIN 27.9 pg (25-34); MEAN CORPUSCULAR HGB CONC 32.2 g/dl (32-36); MONO % 7.5 %; PLATELET COUNT 322 K/uL (130-400); RED BLOOD COUNT 4.55 M/uL (4.7-6.1); WHITE BLOOD COUNT 7.56 K/uL (4.8-10.8)
[2016-12-21 07:14] VITALS: BP 158/78; PULSE 73; TEMP 36.7; O2SAT 96
[2016-12-21 07:49] LABS: BUN/CREATININE RATIO 13.2 (10-20); CALCIUM 8.9 mg/dl (8.5-10.1); CREATININE 0.73 mg/dl (0.60-1.40)
[2016-12-21] MEDS: ASPIRIN 81 MG ECTAB PO SCH (08:09)
[2016-12-21] MEDS: METOPROLOL TARTRATE 50 MG TAB PO SCH ×2 (08:09→20:49)
[2016-12-21] MEDS: ATORVASTATIN 20 MG TAB PO SCH (08:09)
[2016-12-21] MEDS: INSULIN ASPART 100 UNITS/ML 3 ML PEN SC SCH ×4 (08:23→20:43)
--- NOTE | 2016-12-21 09:34 | Pharmacy Progress Note ---
Pharmacy Antibiotic Prog Note Date of Service Dec 21, 2016. Subjective The patient is currently receiving vancomycin 1250 mg iv q 12 hrs and zosyn 4.5 gm iv q 8 hrs for nonhealing cellulitis infection. The patient is currently on day # 3 of IV therapy. Objective Height (Feet): 5 Height (Inches): 8.00 Weight (Kilograms): 108.000 Levels: Item Value Date Time Vancomycin Level Trough 10.0 mcg/ml 12/20/16 2336 Lab Results (24hrs): Test 12/20/16 19:58 12/20/16 23:36 12/21/16 06:30 12/21/16 07:08 Bedside Glucose 193 mg/dl (70-99) 136 mg/dl (70-99) Vancomycin Level Trough 10.0 mcg/ml (SEE COMMENT) White Blood Count 7.56 K/uL (4.8-10.8) Red Blood Count 4.55 M/uL (4.7-6.1) Hemoglobin 12.7 g/dL (14.0-18.0) Hematocrit 39.5 % (42-52) Mean Corpuscular Volume 86.8 fL (80-100) Mean Corpuscular Hemoglobin 27.9 pg (25-34) Mean Corpuscular Hemoglobin Concent 32.2 g/dl (32-36) Platelet Count 322 K/uL (130-400) Mean Platelet Volume 10.0 fL (7.4-10.4) Neutrophils (%) (Auto) 60.0 % Lymphocytes (%) (Auto) 27.0 % Monocytes (%) (Auto) 7.5 % Eosinophils (%) (Auto) 4.2 % Basophils (%) (Auto) 0.9 % Neutrophils # (Auto) 4.53 K/uL (1.4-6.5) Lymphocytes # (Auto) 2.04 K/uL (1.2-3.4) Monocytes # (Auto) 0.57 K/uL (0.11-0.59) Eosinophils # (Auto) 0.32 K/uL (0-0.5) Basophils # (Auto) 0.07 K/uL (0-0.2) RDW Standard Deviation 42.6 fL (36.4-46.3) RDW Coefficient of Variation 13.3 % (11.5-14.5) Immature Granulocyte % (Auto) 0.4 % Immature Granulocyte # (Auto) 0.03 K/uL (0.00-0.02) Sodium Level 138 mmol/L (136-145) Potassium Level 4.0 mmol/L (3.5-5.1) Chloride Level 104 mmol/L (98-107) Carbon Dioxide Level 28 mmol/L (21-32) Anion Gap 6.0 mmol/L (3-11) Blood Urea Nitrogen 10 mg/dl (7-18) Creatinine 0.73 mg/dl (0.60-1.40) Est Creatinine Clear Calc Drug Dose 104.2 ml/min Estimated GFR () 105.2 Estimated GFR (Non- 90.7 BUN/Creatinine Ratio 13.2 (10-20) Random Glucose 138 mg/dl (70-99) Calcium Level 8.9 mg/dl (8.5-10.1) Micro Results: Item Value Date Time Gram Stain - Final Resulted 12/19/16 0605 Drainage - Surface Leg Lower Left Blood Culture - Preliminary Resulted 12/19/16 0603 Blood NO GROWTH TO DATE. Blood Culture - Preliminary Resulted 12/19/16 0550 Blood NO GROWTH TO DATE. Assessment & Plan Patient on vancomycin and zosyn for a nonhealing cellulitis infection. BC x 2 are no growth, drainage of wound preliminary is growing staph species Vancomycin: * Trough level last evening came back therapeutic at ~10 mcg/ml (goal 10-15 mcg/ ml for cellulitis infection w/o abscess; per MD note 12/20 there is no drainage, mild erythema, site improving) * Patient with elevated BMI >35 kg/m2 (actual ~36 kg/m2); expect vancomycin to accumulate next few days * Per MD note, plan to transition to oral abx in next 24-48 hrs if site continues to improve for total of 10 days abx * Will plan to continue with current regimen for now, if vancomycin to be continued longer may need to recheck level Zosyn: * 4.5 gm iv q 8 hrs; appropriate for CrCl >20 ml/min (actual CrCl >100 ml/min) - no change Pharmacy will continue to follow and will adjust dose/frequency as necessary. Thank you
--- NOTE | 2016-12-21 11:35 | Discharge Instructions ---
Discharge Instructions Date of Service Dec 21, 2016. Admission Reason for Admission: Cellulitis Discharge Discharge Diagnosis / Problem: LEFT LOWER EXT CELLULITIS Discharge Goals Goal(s): Decrease discomfort, Improve disease control, Diagnostic testing, Therapeutic intervention Activity Recommendations Activity Limitations: resume your previous activity . Instructions / Follow-Up Instructions / Follow-Up HOSPITAL FOLLOW UP : 12/25/2016 10:20 AM Ancelmo Grimes MD [facility] FOLLOW UP AT WOUND CLINIC : PLEASE FOLLOW UP WITH THE WOUND CLINIC ON TUESDAY 12/26 AT 8:15 [address] [facility], [place] PHONE # [phone] WOUND CARE FOR LEFT CUELLO- APPLY AQUACEL AG, COVER WITH AN OPTIFOAM, CHANGE EVERY OTHER DAY. CARDIOLOGY FOLLOW UP : 12/24/2016 8:25 AM Eugene Mahan Jr., DO Cardiology , [facility] Current Hospital Diet Patient's current hospital diet: Diabetes Type 2 Diet, AHA Diet (Heart Healthy) Discharge Diet Recommended Diet: AHA Diet (Heart Healthy), Diabetes Type 2 Diet Pending Studies Studies pending at discharge: no Medical Emergencies . Who to Call and When: Medical Emergencies: If at any time you feel your situation is an emergency, please call 911 immediately. . Non-Emergent Contact Non-Emergency issues call your: Primary Care Provider . . "Provider Documentation" section prepared by Delaney Zelaya. . VTE Core Measure Inpt VTE Proph given/why not?: Unfractionated heparin SQ
[2016-12-21 14:59] VITALS: BP 150/79; PULSE 66; TEMP 36.8; O2SAT 99
--- NOTE | 2016-12-21 18:45 | Progress Note ---
Internal Med Progress Note Date of Service: Dec 21, 2016. Provider Documentation: SUBJECTIVE: minimum pain and discomfort on left lower ext no fever or chills overall feels fine OBJECTIVE: Vital Signs-as noted below Exam: General-no sign of distress Eyes-sclera non icteric ENT-NAD Neck-no JVD , Lungs-CTA Heart-regular s1/S2 Abdomen-soft , non tender Extremities-left lower ext : crusted healing lesion on left knee, wound on left lower leg -no drainage , resolution of surrounding erythema, Optifoam dressing present Neuro-AAO x3, no focal deficit Lab data as noted below. ASSESSMENT & PLAN: 76 year old male with history of CAD, CABG, S/P Aortic Valve repair, DM presenting with nonhealing wound and lower leg swelling on the left. INFECTED LEFT LOWER WOUND, WITH CELLULITIS -had traumatic injury > 1 week back presented with non healing wound , surrounding erythema with evidence of cellulitis - no signs of sepsis - Xray: no fracture pt continued on vancomycin and zosyn for a nonhealing cellulitis infection. Day # 4 of IV Abx Blood culture x 2 no growth, drainage of wound preliminary is growing staph species-sensitivity and isolation pending pt remained afebrile , no leukocytosis , clinically improvement noted on left lower ext cellulitis plan to transition to suitable oral agent in next 24-48 hrs will need 10-14 days of tx -preferably oral Abx - wound care consulted-appreciate input per Wound care nurse : THERE IS LARGE AREA OF ESCHAR LEFT CUELLO. TREAT WITH MOIST AQUACEL AG AND OPTIFOAM TO SOFTEN PT/OT CAD/CABG, History of Aortic Valve Replacement - stable, no complain of chest pain or SOB , no palpitation or dizzy spell continue Metoprolol, Losartan, hold HCTZ continue Aspirin, Statin DM 2 - hold Exenatide, Metformin-will be resumed on discharge - ISS Heparin for DVT prophylaxis Full code per patient Disposition possible D/c home tomorrow Medicine follow up with Dr Ancelmo Grimes at [facility] home health visiting nurse for wound care at home through [facility] Social service consulted for discharge planning Vital Signs: Date Time Temp Pulse Resp B/P (MAP) Pulse Ox O2 Delivery O2 Flow Rate FiO2 12/22/16 14:28 36.8 72 16 97 Room Air 12/22/16 10:25 152/76 (101) 12/22/16 08:00 97 Room Air 12/22/16 07:22 36.8 72 16 162/83 (109) 97 Room Air 12/22/16 00:00 Room Air 12/21/16 22:45 36.7 70 18 138/75 (96) 96 Room Air 12/21/16 20:00 Room Air 12/21/16 16:00 Room Air Lab Results: Results Past 24 Hours Test 12/21/16 16:21 12/21/16 20:16 12/22/16 06:57 12/22/16 11:08 Range/Units Bedside Glucose 108 160 141 176 70-99 mg/dl
[2016-12-21] MEDS: INSULIN GLARGINE SOLOSTAR 100 UNITS/ML 3 ML PEN SC SCH (20:53)
[2016-12-21 22:45] VITALS: BP 138/75; PULSE 70; TEMP 36.7; O2SAT 96
[2016-12-22] MEDS: HEPARIN SOD 5000 UNIT/0.5 ML CARP SQ SCH ×2 (05:58→14:00)
[2016-12-22 07:22] VITALS: BP 162/83; PULSE 72; TEMP 36.8; O2SAT 97
[2016-12-22 08:00] VITALS: O2SAT 97
[2016-12-22] MEDS: ASPIRIN 81 MG ECTAB PO SCH (08:07)
[2016-12-22] MEDS: ATORVASTATIN 20 MG TAB PO SCH (08:07)
[2016-12-22] MEDS: METOPROLOL TARTRATE 50 MG TAB PO SCH (08:08)
[2016-12-22] MEDS: PIPERACILL/TAZOBAC IV 4.5 GM in DEXTROSE 5% 100ML IV SCH (08:08)
[2016-12-22] MEDS: INSULIN ASPART 100 UNITS/ML 3 ML PEN SC SCH ×2 (08:36→12:43)
[2016-12-22 10:25] VITALS: BP 152/76
[2016-12-22] MEDS: VANCOMYCIN INJ 1,250 MG in SODIUM CHLORIDE 0.9% 250ML 250 ML IV SCH (12:39)
[2016-12-22] MEDS ORDERED: SULF800T23 PO (14:21)
[2016-12-22 14:28] VITALS: BP 152/76; PULSE 72; TEMP 36.8; O2SAT 97
[2016-12-22] MEDS ORDERED: SULFAMETHOXAZOLE/TRIMETHOPRIM DS 800/160MG TAB PO ONE (14:30)
--- NOTE | 2016-12-22 15:16 | Progress Note ---
Internal Med Progress Note Date of Service: Dec 22, 2016. Provider Documentation: SUBJECTIVE: minimum pain and discomfort on left lower ext no fever or chills overall feels fine OBJECTIVE: Vital Signs-as noted below Exam: General-no sign of distress Eyes-sclera non icteric ENT-NAD Neck-no JVD , Lungs-CTA Heart-regular s1/S2 Abdomen-soft , non tender Extremities-left lower ext : crusted healing lesion on left knee, wound on left lower leg -no drainage , resolution of surrounding erythema, Optifoam dressing present Neuro-AAO x3, no focal deficit Lab data as noted below. ASSESSMENT & PLAN: 76 year old male with history of CAD, CABG, S/P Aortic Valve repair, DM presenting with nonhealing wound and lower leg swelling on the left. INFECTED LEFT LOWER WOUND, WITH CELLULITIS -had traumatic injury > 1 week back presented with non healing wound , surrounding erythema with evidence of cellulitis - no signs of sepsis - Xray: no fracture pt treated with vancomycin and Zosyn for a nonhealing cellulitis infection. Day # 4 of IV Abx Blood culture x 2 no growth, drainage of wound culture coag negative staph species Abx changed to PO Bactrim complete 7 more days of tx - wound care consulted-appreciate input continue wound dressing with Aquacel and Optifoam every other day arrangements made with home health visiting nurse for wound care at home pt will benefit with Wound clinic follow up for further care appointment made with at the clinic on Tuesday 12/26 AT 0815 CAD/CABG, History of Aortic Valve Replacement - stable, no complain of chest pain or SOB , no palpitation or dizzy spell continue Metoprolol, Losartan, hold HCTZ continue Aspirin, Statin DM 2 - Exenatide, Metformin-will be resumed on discharge - ISS Heparin for DVT prophylaxis Full code per patient Disposition Discharge home today Medicine follow up with Dr Ancelmo Grimes at [facility] Follow up with Wound clinic on Thursday12/26/16 home health visiting nurse for wound care at home through [facility] Social service consulted for discharge planning Vital Signs: Date Time Temp Pulse Resp B/P (MAP) Pulse Ox O2 Delivery O2 Flow Rate FiO2 12/22/16 14:28 36.8 72 16 97 Room Air 12/22/16 10:25 152/76 (101) 12/22/16 08:00 97 Room Air 12/22/16 07:22 36.8 72 16 162/83 (109) 97 Room Air 12/22/16 00:00 Room Air 12/21/16 22:45 36.7 70 18 138/75 (96) 96 Room Air 12/21/16 20:00 Room Air 12/21/16 16:00 Room Air Lab Results: Results Past 24 Hours Test 12/21/16 16:21 12/21/16 20:16 12/22/16 06:57 12/22/16 11:08 Range/Units Bedside Glucose 108 160 141 176 70-99 mg/dl
--- NOTE | 2016-12-22 15:27 | Discharge Summary ---
Discharge Summary Date of Service Dec 22, 2016. Discharge Summary Admission Date: Dec 19, 2016 at 01:38 Discharge Date: Dec 22, 2016 Discharge Disposition: Home with services Principal Diagnosis: LEFT LOWER EXT CELLULITIS Procedures: LOWER EXTREMITY DOPPLER LEFT LEG : no evidence of left lower extremity DVT LEFT TIBIA/FIBULA 2 VIEWS ROUTINE, LEFT ANKLE MIN 3 VIEWS ROUTINE CLINICAL HISTORY: Left leg and ankle injury with pain. COMPARISON STUDY: None. FINDINGS: No acute fracture or dislocation. Mild vascular calcification. Surgical clips along the medial lower leg. Mild soft tissue edema throughout the lower leg and ankle. Punctate ossific densities adjacent to the medial malleolus are consistent with old avulsion injuries. Plantar and posterior calcaneal spurs. IMPRESSION: Mild soft tissue edema within the left lower leg and left ankle. No acute fracture or dislocation. Medication Reconciliation New Medications: Sulfa/Trimethoprim (Bactrim Ds 800MG/160MG) Tab 1 TAB PO BID for 7 Days, #14 TAB Continued Medications: Aspirin (Aspirin 81) 81 Mg Tab 81 MG PO DAILY Atorvastatin (Lipitor) 40 Mg Tab 40 MG PO DAILY, TAB B-Complex Vitamins (Vitamin B Complex) 1 Tab Tab 1 CAP PO MWF Exenatide (Bydureon) 2 Mg Inj 1 DOSE INJ WK Hctz/Losartan (Hyzaar 12.5MG/50MG) Tab 1 TAB PO DAILY, TAB Metformin Hcl (Glucophage) 1,000 Mg Tab 1000 MG PO BID, TAB Metoprolol Tartrate (Lopressor) (Lopressor) 50 Mg Tab 50 MG PO BID, TAB Admission Information HPI (per Admitting provider): 76 year old male with history of CAD, CABG, S/P Aortic Valve repair, DM presenting with nonhealing wound and lower leg swelling on the left. 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 He sustained wounds on his anterior left lower leg, for which patient applies dressings and topical ointment at home. He noticed that the wound was healing slowly, with occasional discharge, and was getting more red, swollen, and painful, to the point that he is unable to walk properly due to left ankle discomfort. He was then advised to go to ER by his family. At the ER, patient was febrile, no leukocytosis, xray of the left lower leg and foot without fractures. On exam, patient is comfortable. Moderate pain on the affected areas. Denies other symptoms. Physical Exam (per Admitting): General Appearance: WD/WN, no apparent distress Head: normocephalic, atraumatic Eyes: normal inspection, EOMI, sclerae normal ENT: normal ENT inspection, hearing grossly normal, pharynx normal Neck: supple, no adenopathy, thyroid normal, no JVD, trachea midline Respiratory/Chest: chest non-tender, lungs clear, normal breath sounds, no respiratory distress, no accessory muscle use Cardiovascular: regular rate, rhythm, no edema, no gallop, no murmur Abdomen/GI: normal bowel sounds, non tender, soft, no organomegaly Back: normal inspection, no CVA tenderness Extremities/Musculoskelatal: + pertinent finding (left lower leg: (+) open wounds on the anterior aspect, no discharge with surrounding moderate edema and erythema, (+) tenderness) 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 INFECTED LEFT LOWER WOUND, WITH CELLULITIS -had traumatic injury > 1 week back presented with non healing wound , surrounding erythema with evidence of cellulitis - no signs of sepsis - Xray: no fracture pt treated with vancomycin and Zosyn for a nonhealing cellulitis infection. Day # 4 of IV Abx Blood culture x 2 no growth, drainage of wound culture coag negative staph species Abx changed to PO Bactrim complete 7 more days of tx - wound care consulted-appreciate input continue wound dressing with Aquacel and Optifoam every other day arrangements made with home health visiting nurse for wound care at home pt will benefit with Wound clinic follow up for further care appointment made with at the clinic on Tuesday 12/26 AT 0815 CAD/CABG, History of Aortic Valve Replacement - stable, no complain of chest pain or SOB , no palpitation or dizzy spell continue Metoprolol, Losartan, hold HCTZ continue Aspirin, Statin DM 2 - Exenatide, Metformin-will be resumed on discharge - ISS Heparin for DVT prophylaxis Full code per patient Disposition Discharge home today Medicine follow up with Dr Ancelmo Grimes at [facility] Follow up with Wound clinic on Thursday12/26/16 home health visiting nurse for wound care at home through [facility] Social service consulted for discharge planning Total time spent on discharge = 40 MINS This includes examination of the patient, discharge planning, medication reconciliation, and communication with other providers. Discharge Instructions Discharge Instructions Date of Service Dec 21, 2016. Admission Reason for Admission: Cellulitis Discharge Discharge Diagnosis / Problem: LEFT LOWER EXT CELLULITIS Discharge Goals Goal(s): Decrease discomfort, Improve disease control, Diagnostic testing, Therapeutic intervention Activity Recommendations Activity Limitations: resume your previous activity . Instructions / Follow-Up Instructions / Follow-Up HOSPITAL FOLLOW UP : 12/25/2016 10:20 AM Ancelmo Grimes MD [facility], [place] FOLLOW UP AT WOUND CLINIC : PLEASE FOLLOW UP WITH THE WOUND CLINIC ON TUESDAY 12/26 AT 8:[address] [place], [place] PHONE # [phone] WOUND CARE FOR LEFT CUELLO- APPLY AQUACEL AG, COVER WITH AN OPTIFOAM, CHANGE EVERY OTHER DAY. CARDIOLOGY FOLLOW UP : 12/24/2016 8:25 AM Eugene Mahan Jr., DO Cardiology , [facility] Current Hospital Diet Patient's current hospital diet: Diabetes Type 2 Diet, AHA Diet (Heart Healthy) Discharge Diet Recommended Diet: AHA Diet (Heart Healthy), Diabetes Type 2 Diet Pending Studies Studies pending at discharge: no Medical Emergencies . Who to Call and When: Medical Emergencies: If at any time you feel your situation is an emergency, please call 911 immediately. . Non-Emergent Contact Non-Emergency issues call your: Primary Care Provider . . "Provider Documentation" section prepared by Delaney Zelaya. . VTE Core Measure Inpt VTE Proph given/why not?: Unfractionated heparin SQ Additional Copies To Ancelmo Grimes M.D.
== END 2016-12-22 16:46 | disposition home health service (06) | DRG 603 ==
LOC: C.EDB 21:27 → C.MED 12-19 01:38 → ENRESERV 12-19 01:43
PROVIDERS: ADMIT Internal Medicine; ATTEND Hospitalist
DX: L03.116 Cellulitis of left lower limb (principal); I25.10 Atherosclerotic heart disease of native coronary artery without angina pectoris; Z95.1 Presence of aortocoronary bypass graft; E11.9 Type 2 diabetes mellitus without complications; S81.802A Unspecified open wound, left lower leg, initial encounter; Z95.2 Presence of prosthetic heart valve; W22.8XXA Striking against or struck by other objects, initial encounter; I10 Essential (primary) hypertension; E78.5 Hyperlipidemia, unspecified; Z79.01 Long term (current) use of anticoagulants; F17.200 Nicotine dependence, unspecified, uncomplicated; Z83.3 Family history of diabetes mellitus; Z79.82 Long term (current) use of aspirin

== ENCOUNTER 2019-10-18 08:43 | Observation (INO) ==
--- NOTE | 2019-09-23 14:07 | PAT Medication Instructions ---
Medication Instructions Date of Service September 23, 2019 Home Medications Medication Instructions Recorded Wheelchair (Manual or Powered) #1 ea 08/18/19 aspirin [Aspir-81] 81 mg PO QAM exenatide microspheres [Bydureon] 2 mg SUBCUT Q7D insulin glargine [Lantus U-100 Insulin] 18 unit SUBCUT HS losartan 50 mg PO QAM metformin 1,000 mg PO BID metoprolol tartrate 50 mg PO BID multivitamin 1 tab PO QAM simvastatin 40 mg PO PM vitamin B complex 1 tab PO 3XWK Continue as directed exenatide microspheres [Bydureon] 2 mg SUBCUT Q7D DO NOT take the morning of surgery aspirin [Aspir-81] 81 mg PO QAM losartan 50 mg PO QAM metformin 1,000 mg PO BID multivitamin 1 tab PO QAM vitamin B complex 1 tab PO 3XWK Take morning of surgery With a small sip of water, OTHERWISE NOTHING TO EAT OR DRINK AFTER MIDNIGHT: aspirin [Aspir-81] 81 mg PO QAM metoprolol tartrate 50 mg PO BID Take evening before surgery insulin glargine [Lantus U-100 Insulin] 18 unit SUBCUT HS metformin 1,000 mg PO BID metoprolol tartrate 50 mg PO BID simvastatin 40 mg PO PM Other Notes If you have any questions please call us at [phone] or [phone] or [phone] or [phone]
--- NOTE | 2019-09-26 09:36 | Anesthesiology Consultation ---
Date of Service September 26, 2019 Assessment & Plan (1) Encounter for pre-operative examination: COVID Status: As of 09/22 nurse assessment, patient denies travel to endemic area, known exposure/sick contacts, or symptoms of COVID19. Preoperative COVID19 testing to be completed prior to surgery. Chart Review Chart Review: Acceptable Risk for Surgery and Patient seen in Pre Admission Testing Teaching & Discussion Instructed NPO after midnight before surgery, except medications with 15 cc of water. Medication instructions provided according to the PAT guidelines. History Surgery Operation Date: 10/18/19 07:00 Proposed Procedures p Left Total Knee Arthroplasty - Ovidio Corado MD Height/Weight Height: 5 ft 8 in Weight: 107.6 kg Allergies Allergy/AdvReac Type Severity Reaction Status Date / Time No Known Allergies Allergy Mild Verified 09/21/19 13:38 Medications Home Medications Medication Instructions Recorded Confirmed Last Taken Wheelchair (Manual or Powered) #1 ea 08/18/19 08/18/19 Unknown aspirin [Aspir-81] 81 mg PO QAM 09/21/19 09/21/19 Unknown exenatide microspheres [Bydureon] 2 mg SUBCUT Q7D 09/21/19 09/21/19 Unknown insulin glargine [Lantus U-100 18 unit SUBCUT HS 09/21/19 09/21/19 Unknown Insulin] losartan 50 mg PO QAM 09/21/19 09/21/19 Unknown metformin 1,000 mg PO BID 09/21/19 09/21/19 Unknown metoprolol tartrate 50 mg PO BID 09/21/19 09/21/19 Unknown multivitamin 1 tab PO QAM 09/21/19 09/21/19 Unknown simvastatin 40 mg PO PM 09/21/19 09/21/19 Unknown vitamin B complex 1 tab PO 3XWK 09/21/19 09/21/19 Unknown Past Medical History Medical History Aortic valve disease s/p bioprosthetic AV replacement 2013 Arthritis Degenerative arthritis of knee, bilateral Diabetes mellitus, type 2 GERD (gastroesophageal reflux disease) Hyperlipidemia Hypertension Obesity Sleep apnea MILD-NO DEVICE REQUIRED Exercise / Class Metabolic Activity II 4-5 Yardwork/Stairs/Walk up hill (denies CP or SOB with 1 FOS, just one step at a time due to knee pain) Past Family History Family History Father Family history of diabetes mellitus Son Family history of diabetes mellitus Son Family history of diabetes mellitus Past Surgical History Surgical History History of cardiac cath NO STENTS-2013 [facility] History of colonoscopy History of heart valve replacement AVR-[place] [facility] [place] [facility] [place] History of open reduction and internal fixation (ORIF) procedure LEFT ARM History of tonsillectomy Past Anesthesia History No Hx of Anesthesia Complications and No Family Hx of Anesthesia Complications H/O post op constipation. History of PONV No Hx of PONV and No Hx of Motion Sickness Social History Smoking Status: Former smoker Do You Dip or Chew Tobacco: No Smoking End Date: QUIT 2013 Hx Alcohol Use: Yes Alcohol type: beer alcohol intake frequency: holidays/special occasions only Hx Substance Use: No Review of Systems Pt denies any recent chest pain, shortness of breath, palpitations, cough, fever or URI. Physical Exam Vital Signs BP: 166/80 P: 77bpm SPO2: 98% RA T: 98.3 F R: 16 Constitutional + obese ENMT Mouth: + chipped teeth (broken cap upper R canine); no dental restorations and no loose teeth Thyromental Distance: < 3.5 Finger Breadths (3) Mallampati Class: II Neck normal visual inspection; neck extension not limited Respiratory normal respiratory effort Auscultation: lungs clear to auscultation bilaterally Cardiovascular Rate/Rhythm: regular rate and regular rhythm Heart Sounds: + murmur (I/ systolic) Extremities: no edema Testing Laboratory Results 09/26/19 09:50 09/26/19 09:50 PT 10.4 Seconds (9.0-12.0) 09/26/19 09:50 INR 1.0 (0.9-1.1) 09/26/19 09:50 APTT 29.2 Seconds (21.0-31.0) 09/26/19 09:50 Hemoglobin A1c 7.8 % (4.5-5.6) H 09/26/19 09:50 Blood Type A Positive 09/26/19 09:50 Antibody Screen NEGATIVE 09/26/19 09:50 Electrocardiogram Date: 12/29/18 Findings: + NSR @ (65bpm) Echocardiogram Date: 12/20/18 EF: 55-59% Mild concentric LVH. Grade 1 diastolic dysfunction. There is an aortic valve bioprosthetic present. The aortic valve prosthesis systolic gradients are normal for this type of prosthesis. No significant bioprosthetic aortic valve regurgitation. Mild mitral regurgitation is present. Proximal ascending thoracic aorta is borderline enlarged. Compared to last available study, Bioprosthetic aortic valve now present.
--- NOTE | 2019-09-26 10:16 | XRay Report ---
XR chest Pre-admission PA/Lat CLINICAL HISTORY: Preoperative chest COMPARISON STUDY: No previous studies for comparison. FINDINGS: There are postsurgical changes of a midline sternotomy and aortic valve replacement. The he art is the upper limits of normal in size. There is no failure. There is no focal pulmonary consolida tion. There are no pleural effusions.[ IMPRESSION: No active disease in the chest. ACT 112: Negative or not required by law. Electronically signed by: Husam Demarco M.D. 09/26/2019 10:15 AM
[2019-09-26 11:37] LABS: Basophils # (auto) 0.06 K/uL (0-0.2); Basophils % (auto) 0.8 %; Eosinophils # (auto) 0.29 K/uL (0-0.5); Eosinophils % (auto) 3.8 %; Hematocrit (blood only) 38.8 % (42-52); Hemoglobin 12.5 g/dL (14.0-18.0); Immature Granulocytes # (auto) 0.03 K/uL (0.00-0.02); Immature Granulocytes % (auto) 0.4 %; Lymphocytes # (auto) 1.42 K/uL (1.2-3.4); Lymphocytes % (auto) 18.4 %; Mean Corpuscular Hemoglobin 28.5 pg (25-34); Mean Corpuscular Hgb Conc 32.2 g/dL (32-36); Mean Corpuscular Volume 88.4 fL (80-100); Monocytes # (auto) 0.53 K/uL (0.11-0.59); Monocytes % (auto) 6.9 %; Neutrophils # (auto) 5.39 K/uL (1.4-6.5); Neutrophils % (auto) 69.7 %; Platelet Count 310 K/uL (130-400); RDW Coefficient of Variation 13.7 % (11.5-14.5); RDW Standard Deviation 44.6 fL (36.4-46.3); Red Blood Count 4.39 M/uL (4.7-6.1); White Blood Count 7.72 K/uL (4.8-10.8)
[2019-09-26 11:43] LABS: BUN Creatinine Ratio 18.9 (10-20); Calcium 9.2 mg/dl (8.5-10.1); Creatinine Clr Calc Pharmacy 109.7 ml/min; Est GFR (African American) 107.3; Est GFR (Non-African American) 92.6; Potassium 4.1 mmol/L (3.5-5.1)
[2019-09-26 11:49] LABS: Partial Thromboplastin Time 29.2 Seconds (21.0-31.0); Prothrombin Time 10.4 Seconds (9.0-12.0)
[2019-09-26 12:02] LABS: Estimated Average Glucose 177 mg/dl; Hemoglobin A1C 7.8 % (4.5-5.6)
--- NOTE | 2019-10-02 12:55 | History and Physical Report ---
DATE OF ADMISSION: 10/18/2019 CHIEF COMPLAINT: Bilateral knee pain and discomfort, left side greater than right. HISTORY OF PRESENT ILLNESS: The patient is a 79-year-old fairly active gentleman who has had about a 10-year history of bilateral knee pain and discomfort, left side worse than the right. No particular injury. He describes a lot of pain and stiffness in both knees. He has difficulty getting up and down steps and climbing up and down ladders. He was treated with an injection at [facility], which helped him for about a month at most. He has increased pain and stiffness while getting up. It gets worse as the day goes on. He limps more as the day goes on. He has nighttime discomfort. He would like to proceed with knee replacement surgery. The left knee is worse than the right. PAST MEDICAL HISTORY: Significant for; 1. Heart disease, status post valve replacement done at [facility] in 1995. 2. Diabetes x18 years. PAST SURGICAL HISTORY: Include cardiac valve replacement. ALLERGIES: None. CURRENT MEDICATIONS: 1. Losartan 50 mg a day. 2. Rosuvastatin 40 mg in the evening. 3. Metformin 1000 mg twice a day. 4. Lantus insulin. 5. Metoprolol 50 mg twice a day. SOCIAL HISTORY: Significant for a 79-year-old male. He is . Does not smoke. Rare alcohol intake. FAMILY HISTORY: Significant for diabetes. REVIEW OF SYSTEMS: Significant for diabetes. Denies any chest pain or shortness of breath. No history of DVT or PE. He does have this cardiac history, followed by Dr. Mahan here. PHYSICAL EXAMINATION: GENERAL: Shows a pleasant elderly male. Looks to be in pretty good health. HEENT: Benign. NECK: Supple, no lymphadenopathy. LUNGS: Clear to auscultation. HEART: Has a regular rate and rhythm. ABDOMEN: Soft, nontender, nondistended. EXTREMITIES: Grossly neurovascularly intact except as follows: Examination of both knees reveals the patient ambulates independently. He does limp a little bit on the left, a bit more than the right. Examination of the left knee reveals varus alignment to his knee. He has got bony hypertrophy medially. His knee is pretty stiff with about 5-10 degree flexion contracture and he can only flex to 90 degrees. No varus or valgus instability. No pain with hip motion. Examination of the right knee reveals varus alignment. He is tender over the medial joint line. Range of motion 5-115. No instability. X-RAYS: X-rays of both knees were reviewed. It shows advanced bilateral knee DJD. Left side is a little bit worse than the right. He has got tricompartment disease with complete loss of his medial joint space. He has got chondrocalcinosis. ASSESSMENT: A 79-year-old male with advanced bilateral knee degenerative joint disease. He has failed conservative care. The left knee is bothered more than the right and he would like to proceed with knee replacement. PLAN: We are going to proceed with left total knee replacement. The risks and benefits of this procedure were explained to the patient including but not limited to DVT, PE, , infection, neurological injury, vascular injury, bleeding problem, pain, limited range of motion, stiffness, failure to relieve symptoms, incomplete relief of symptoms, need for further surgery in the future, fracture, leg length inequality, nerve palsy, dislocation, persistent pain, and incomplete relief of symptoms. The patient understands and desires to proceed. Informed consent was obtained. As far as discharge plans, he is planning to be discharged to home using the [facility] home health program. His will assist in his care. I will see him back 2 weeks postop. We did talk to him about taking his metoprolol on the morning of surgery and holding the metformin.
[~2019-10-18 08:43] MED LIST changes: +ACETAMINOPHEN 500 MG TAB PO SCH; -ASPI-435 PO; -B-COTAB18 PO; +BUPIVACAINE 0.25% 30 ML VIAL ONE; +BUPIVACAINE 0.5 % 5 MG/1 ML PF 10ML VIAL ONE; +BUPIVACAINE LIPOSOME/PF 266 MG, BUPIVACAINE/EPINEPHRINE 50 ML, SODIUM CHLORIDE 0.9% 30 ... INFIL SCH; -BYTI10 SC; +CEFAZOLIN 2000MG 2,000 MG/15 ML SYR IV SCH; +FAMOTIDINE 20 MG TAB PO SCH; +GABAPENTIN 300 MG CAP PO SCH; -GLC500 PO; -GLUCPOW41 PO; -INSDGI SC; -LOSA100T26 PO; +LR 500ML BOLUS, THEN 15ML/HR IV SCH; +LR 60ML/HR IV SCH; +METOCLOPRAMIDE HCL 10 MG TABLET PO SCH; -MULTTAB58 PO; -SIMV40TA2 PO
--- NOTE | 2019-10-18 08:53 | History & Physical Bridge Note ---
Date of Service October 18, 2019 History & Physical Bridge Note I have examined the patient, reviewed the History & Physical and in the interval since the performance of the History & Physical I have noted the following changes of clinical significance: no changes noted
[2019-10-18] MEDS ORDERED: MIDAZOLAM HCL 1 MG/ML 2ML VIAL ONE (09:25)
[2019-10-18] MEDS ORDERED: ePHEDrine sulfate 50 MG/ML AMP IV PRN (09:55)
[2019-10-18] MEDS ORDERED: fentaNYL citrate 100 MCG/2 ML VIAL IV PRN (09:55)
[2019-10-18] MEDS ORDERED: ONDANSETRON INJ 2 MG/ML 2 ML VIAL IV PRN ×2 (09:55→13:54)
[2019-10-18] MEDS ORDERED: ATROPINE SULFATE 0.1 MG/ML 10ML SYR IV PRN (09:55)
[2019-10-18] MEDS ORDERED: BACITRACIN INJ 50,000 UNIT VIAL ONE (10:42)
[2019-10-18] MEDS ORDERED: PROPOFOL IV EMULSION 10 MG/ML 20 ML VIAL IV ONE ×3 (10:48→12:05)
[2019-10-18] MEDS ORDERED: LIDOCAINE HCL 2% 2 ML VIAL/AMP(20MG/ML) INFIL ONE (10:48)
[2019-10-18] MEDS ORDERED: TRANEXAMIC ACID / 0.7% NACL 1000MG/100ML BAG IV ONE (11:10)
[2019-10-18] MEDS ORDERED: TRANEXAMIC ACID / 0.7% NACL 1,000 MG/100 ML BAG IV STA (11:22)
[2019-10-18] MEDS: SODIUM CHLORIDE 0.9% PF 50 ML VIAL ONE ×2 (11:29→11:51)
[2019-10-18] MEDS: BUPIVACAINE/EPINEPHRINE 0.25% 1:200,000 30 ML VIAL ONE ×2 (11:29→11:52)
[2019-10-18] MEDS: BUPIVACAINE LIPOSOME 1.3% 266 MG/20 ML VIAL ONE ×2 (11:29→11:51)
[2019-10-18] MEDS ORDERED: fentaNYL citrate 100 MCG/2 ML VIAL ONE (12:08)
--- NOTE | 2019-10-18 12:48 | Post Operative Brief Note ---
PG Immediate Post Op with CF Date of Surgery October 18, 2019 Pre & Post Diagnosis Operation Date: 10/18/19 10:40 Pre-Op Diagnosis: Left Knee Advanced Degenerative Joint Disease Post-Op Diagnosis: Left Knee Advanced Degenerative Joint Disease I identified the patient and participated in the time-out.: Yes Procedure Operation Date: 10/18/19 10:40 Actual Procedures p Left Total Knee Arthroplasty(Left) - Ovidio Corado MD Surgeon Ovidio Corado MD Community Leader Ko, PAC Estimated Blood Loss 50 Findings Consistent with Post-Op Diagnosis Fluids 500 cc Specimens Specimen Description: A. Left knee bone & tissue Drains Aguilar Catheter Anesthesia Type Spinal MAC Complications none Disposition Accompanied Patient To Recovery: No Disposition: Recovery Room
--- NOTE | 2019-10-18 13:01 | Operative Report ---
Post Operative Report Pre & Post Diagnosis Operation Date: 10/18/19 10:40 Pre-Op Diagnosis: Left Knee Advanced Degenerative Joint Disease Post-Op Diagnosis: Left Knee Advanced Degenerative Joint Disease I identified the patient and participated in the time-out.: Yes Procedure Operation Date: 10/18/19 10:40 Actual Procedures p Left Total Knee Arthroplasty(Left) - Ovidio Corado MD Surgeon Ovidio Corado MD Employment Law Attorney Ko, PAC Estimated Blood Loss 50 Findings Consistent with Post-Op Diagnosis Operative findings revealed advanced left knee tricompartment DJD with extensive grade 4 changes in all 3 compartments most severe in the medial compartment. He had osteophytes in all 3 compartments. He had a varus deformity to his knee with a flexion contracture of 10+ degrees. Moderate to large knee joint effusion. Fluids 500 cc. Specimens Left knee sent for pathology. Drains None. Anesthesia Type Spinal MAC Complications none Disposition Accompanied Patient To Recovery: No Disposition: Recovery Room Indications Patient is a 79-year-old gentleman is had a long history of bilateral knee pain discomfort left side greater than right. Is been through extensive conservative treatment. This became less successful over time. X-rays show advanced DJD. He had a very stiff knee preoperatively. He elected proceed with a total knee arthroplasty. Description of Procedure Operative implants consisted of: 1. Biomet Vanguard size 70 left posterior by femoral component. 2. Biomet size 75 tibial tray. 3. 10 mm posterior stabilized polyethylene insert. 4. 31 x 8 all poly-patella. Patient was taken to the operating room identified and placed on the operating table supine position. All contact areas were appropriately padded. IV antibiotics were 5 by anesthesia team. A spinal anesthetic and abductor canal block had been provided in the holding area. Aguilar catheter was placed in sterile fashion. Left thigh turn was then placed in the left lower extremity was then prepped and draped in usual sterile fashion. The left leg was elevated exsanguinated with use of an Esmarch and turns placed at 300 mmHg. An anterior posterior left knee was then performed through a longitudinal incision centered over the patella. Sharp dissection got through subcutaneous tissue down the extensor mechanism. A medial parapatellar arthrotomy incision was made. Some subperiosteal dissection was carried out medially. The fat pad was resected from each patella tendon. Lateral patellofemoral ligament was released. Patella was subluxated laterally and the knee was flexed. The osteophytes were taken off the distal femur. The ACL and PCL were then released in the distal femur and the tibia subluxated anteriorly. External tibial alignment jig was then placed in the interface the tibia and adjusted 14 mm medially. Proximal tibial cut was made to move out 2 mm of bone from the most efficient aspect medial tibial plateau. Some osteophytes were taken off medial and posterior medially. The tibia sized to a size 75. Attention drawn the femur. The distal femur stem with a sharp drop with intramedullary canal was suction. A left 6 degree valgus cutting guide was placed. This femoral cutting block was pinned in place but distal femoral cut was made to take an additional 3 mm of bone off distal femur. The femur was then sized to a size 70. The AP cutting block was pinned parallel to the epicondylar axis which was 5 degrees of external rotation. The anterior cut, anterior chamfer, posterior cut, posterior chamfer cuts were made. Box cutting guide was placed in just slight lateral box cut was made. The knee was flexed. The remnants of the medial lateral menisci were excised. The osteophytes were taken off the posterior aspect of the femur. A trial femoral component was placed. The tibial tray was pinned in maximum external rotation and the drill and stem punch we used to create defect in proximal tip for the tibial tray. Knee was then trialed the 10 mm insert fit most appropriately. Attention drawn the patella. The patella was cleaned of all soft tissues. Patella thickness measured 25 mm in thickness and was cut down to 15. Was sized to a size 31 patella. Locals were drilled for 31 patella. The lateral osteophyte was removed. Patella button was placed. Knee was taken through range of motion patella tracked nicely with no thumbs test. Attention drawn to placing the permanent components. All trial components were removed. A bone plug was placed in the distal femur limit blood loss put a double batch [place] G cement was mixed. A Biomet Vanguard size 70 left posterior by femoral component, a size 75 tibial tray, a 10 mm posterior box polyethylene insert, and a 31 x 8 all poly-patella were then cemented in place. Knee was brought out in full extension total cement hardened. Final cement check was then performed. The pericapsular tissues were injected with total 100 cc of combination of 20 cc of Exparel, 30 cc normal saline, 50 cc of quarter percent Marcaine with epinephrine. Patient did receive 1 g tranexamic acid per the tourniquet was then let down for final turn time 62 minutes. Hemostasis assured use electrocautery. The wounds once again irrigate d. Extensor macros then closed with combination 1 PDS suture #1 Vicryl suture in [id number] fashion. The extensor mechanism checked found to be intact the subcutaneous tissue then closed with 2 Dexon suture in a buried interrupted fashion skin was closed skin madalyn. Leg was then cleaned dried a sterile dressing composed Xeroform, 4 x 4's, sterile cast padding, Gopal bandage were applied. Patient then transferred to the recovery room in stable condition. Patient tolerated procedure well no complications. I attest to the content of the Intraoperative Record and any orders documented therein. Any exceptions are noted below.
[2019-10-18] MEDS ORDERED: DEXTROSE 50% 50 ML SYRINGE IV PRN (13:54)
[2019-10-18] MEDS ORDERED: EXENATIDE MICROSPHERES 2 MG SQ SCH (13:54)
[2019-10-18] MEDS ORDERED: GLUCOSE 40% GEL 15 GM TUBE PO PRN (13:54)
[2019-10-18] MEDS ORDERED: CARBOHYDRATES FOR HYPOGLYCEMIA PO PRN (13:54)
[2019-10-18] MEDS ORDERED: METOCLOPRAMIDE HCL INJ 5 MG/ML 2 ML VIAL IV PRN (13:54)
[2019-10-18] MEDS ORDERED: bisacodyL 10 MG SUPP PR PRN (13:54)
[2019-10-18] MEDS ORDERED: TAMSULOSIN HCL 0.4 MG CAP PO PRN (13:54)
[2019-10-18] MEDS ORDERED: ALUMINUM/MAGNESIUM SUSP 30 ML UDC PO PRN (13:54)
[2019-10-18] MEDS ORDERED: HYDROmorphone INJ 0.5 MG/0.5 ML SYR IV PRN (13:54)
[2019-10-18] MEDS ORDERED: NALOXONE HCL 0.4 MG/1 ML VIAL/CARP IV PRN (13:54)
[2019-10-18] MEDS ORDERED: GLUCAGON FOR INJ 1 MG VIAL SQ PRN (13:54)
[2019-10-18] MEDS ORDERED: MAGNESIUM HYDROXIDE SUSP 30 ML UDC PO PRN (13:54)
[2019-10-18] MEDS ORDERED: GLUCOSE 10 TABS/TUBE PO PRN (13:54)
--- NOTE | 2019-10-18 13:57 | Anesthesiology Progress Note ---
Date of Service October 18, 2019 Anesthesia Post Procedure Vital Signs Vital Signs: Temp Pulse Pulse Pulse Resp BP BP 10/18/19 13:42 36.4 C L 70 16 158/72 H 10/18/19 13:30 72 15 143/96 H 10/18/19 13:20 36.4 C L 73 16 158/78 H 10/18/19 13:10 74 17 139/78 10/18/19 13:00 77 19 139/76 10/18/19 12:53 36.7 C 78 12 125/64 10/18/19 09:55 74 20 164/80 H 10/18/19 09:33 36.7 C 78 20 169/83 H Pulse Ox 10/18/19 13:42 10/18/19 13:30 93 10/18/19 13:20 94 10/18/19 13:10 100 10/18/19 13:00 100 10/18/19 12:53 100 10/18/19 09:55 97 10/18/19 09:33 97 Transfer of Care Handoff Completed per policy Notes Mental Status: alert / awake / arousable and participated in evaluation Patient Amnestic to Procedure: Yes Nausea / Vomiting: adequately controlled Pain: adequately controlled Airway Patency, RR, SpO2: stable & adequate BP & HR: stable & adequate Hydration State: stable & adequate Neuraxial Anesthesia: was administered and sensory block is resolving Anesthetic Complications: no major complications apparent and Pt Satisfied with anesthetic care
[2019-10-18] MEDS: SODIUM CHLORIDE 0.9% 1000ML 1,000 ML IV SCH (14:15)
--- NOTE | 2019-10-18 14:15 | XRay Report ---
XR knee LT 1 or 2V routine HISTORY: 79 years-old Male Surgical Post Op [knee total joint arthroplasty. COMPARISON: None TECHNIQUE: 2 views of the left knee FINDINGS: Left knee total joint arthroplasty and patella resurfacing. Anterior midline skin madalyn are noted a long with expected postsurgical soft tissue swelling and deep tissue air with surgical drainage michelle ter. No acute fracture or retained foreign body. IMPRESSION: Left knee total joint arthroplasty and patella resurfacing with expected postoperative fi ndings. ACT 112: Negative or not required by law. The above report was generated using voice recognition software. It may contain grammatical, syntax o r spelling errors. Electronically signed by: Peter Haq M.D. 10/18/2019 2:13 PM
[2019-10-18] MEDS ORDERED: PHARMACY GLYCEMIC MGMT CONSULT PRN (14:17)
--- NOTE | 2019-10-18 14:29 | Pharmacy Report ---
Glycemic Control Consultation - Date of Service October 18, 2019 - Scope Scope: Glycemic Pharmacist consulted for glycemic control and to write orders per [facility] inpatient glycemic control protocol. - Objective Weight: 106.64 kg Accuchecks BSG (last 24hrs): 10/18/19 10/18/19 09:12 12:59 POC Glucose 146 H 131 H HbA1c: Hemoglobin A1c 7.8 % (4.5-5.6) H 09/26/19 09:50 - Recent Pertinent Medications Outpatient Anti-diabetic Regimen: * Lantus 18 units HS, Metformin 1000 mg BID, Exenatide 2 mg weekly (per records last taken 10/15) * A1c = 7.8 % 09/26/2019 Risk Factors for Insulin Resistance: * Recent Surgery: POD #0 * Diet: T2DM - Assessment & Plan Assessment & Plan: ASSESSMENT: * Mr. Elder is admitted following left total knee arthroplasty * BSGs 146/131, patient has not received steroids * Will continue patient's home dose of lantus tonight, add novolog coverage with meals between weight based stress of 1 and 2 PLAN FOR INPATIENT GLYCEMIC CONTROL: * Basal insulin * Lantus 18 units HS * Bolus insulin * NovoLog per scale ACHS or Q6hrs while NPO * Goal Range: Low 110 mg/dL - High 140 mg/dL * Correction Factor: 20 mg/dL/unit * Nutritional / Prandial insulin per carb ratio of 1 unit per 10 grams CHO consumed * Please note that the plan above was derived based on current level of insulin resistance and hospital stress. These recommendations are appropriate for inpatient admission only. Plan of care upon discharge will need to be reassessed to avoid potential outpatient hypo/hyperglycemia. Thank you.
[2019-10-18] MEDS: KETOROLAC TROMETHAMINE 15 MG/ML VIAL IV SCH (17:22)
[2019-10-18] MEDS: ASCORBIC ACID 500 MG TAB PO SCH (17:23)
[2019-10-18] MEDS: ACETAMINOPHEN 500 MG TAB PO SCH (17:23)
[2019-10-18] MEDS: FERROUS GLUCONATE 324 MG TAB PO SCH (17:23)
[2019-10-18] MEDS: INSULIN ASPART 100 UNITS/ML 3 ML PEN SC SCH ×4 (17:34→20:57)
[2019-10-18] MEDS ORDERED: TRANEXAMIC ACID / 0.7% NACL 1,000 MG/100 ML BAG IV SCH (19:00)
[2019-10-18] MEDS: CEFAZOLIN 2000MG 2,000 MG/15 ML SYR IV SCH (19:15)
[2019-10-18] MEDS: ASPIRIN 81 MG ECTAB PO SCH (20:55)
[2019-10-18] MEDS: METOPROLOL TARTRATE 50 MG TAB PO SCH (20:55)
[2019-10-18] MEDS: DOCUSATE SODIUM 100 MG CAP PO SCH (20:55)
[2019-10-18] MEDS: INSULIN GLARGINE SOLOSTAR 100 UNITS/ML 3 ML PEN SC SCH (20:56)
[2019-10-18] MEDS: SENNA 8.6 MG TAB PO SCH (20:56)
[2019-10-19] MEDS: KETOROLAC TROMETHAMINE 15 MG/ML VIAL IV SCH ×5 (00:15→23:45)
[2019-10-19] MEDS: SODIUM CHLORIDE 0.9% 1000ML 1,000 ML IV SCH (01:24)
[2019-10-19] MEDS: CEFAZOLIN 2000MG 2,000 MG/15 ML SYR IV SCH (02:07)
[2019-10-19] MEDS: ACETAMINOPHEN 500 MG TAB PO SCH ×3 (05:59→21:22)
[2019-10-19 06:21] LABS: Hematocrit (blood only) 31.4 % (42-52); Hemoglobin 10.4 g/dL (14.0-18.0); Mean Corpuscular Hemoglobin 28.2 pg (25-34); Mean Corpuscular Hgb Conc 33.1 g/dL (32-36); Mean Corpuscular Volume 85.1 fL (80-100); Mean Platelet Volume 10.5 fL (7.4-10.4); Platelet Count 298 K/uL (130-400); RDW Coefficient of Variation 13.6 % (11.5-14.5); RDW Standard Deviation 41.9 fL (36.4-46.3); Red Blood Count 3.69 M/uL (4.7-6.1); White Blood Count 7.98 K/uL (4.8-10.8)
[2019-10-19 06:35] LABS: BUN Creatinine Ratio 16.7 (10-20); Calcium 8.3 mg/dl (8.5-10.1); Creatinine Clr Calc Pharmacy 97.4 ml/min; Est GFR (African American) 102.4; Est GFR (Non-African American) 88.3; Potassium 3.9 mmol/L (3.5-5.1)
--- NOTE | 2019-10-19 08:07 | Progress Notes ---
DATE: 10/19/2019 SUBJECTIVE: A 79-year-old gentleman postop day 2 from a left knee replacement. He is doing pretty well. Pain is controlled. Had a pretty good night. Denies any chest pain or shortness of breath. Not feeling dizzy or lightheaded. OBJECTIVE: VITAL SIGNS: Temperature 37.2. Vital signs stable. GENERAL: Shows a pleasant elderly male. He is sitting up in his bedside chair, looks pretty comfortable. LUNGS: Clear to auscultation. HEART: Has a regular rate and rhythm. ABDOMEN: Soft, nontender, nondistended. EXTREMITIES: Grossly neurovascularly intact except as follows. Examination of the left lower extremity reveals the leg to be well aligned. Dressing is clean, dry, and intact. He can dorsiflex and plantarflex his foot appropriately. He is neurologically intact. LABORATORY DATA: Hemoglobin is 10.4. Hematocrit 31.4. Electrolytes are stable. ASSESSMENT: A 79-year-old gentleman postop day 1 from a left knee replacement, doing pretty well. He is neurologically intact. Mildly anemic, but asymptomatic. PLAN: 1. DVT prophylaxis including thigh-high TEDs, SCDs, and aspirin twice a day. 2. PT/OT. Weightbear as tolerated. Left total knee protocol. 3. Pain control, doing well with current pain regimen. 4. Anemia. Asymptomatic. Continue iron supplementation. 5. Disposition: Plan to discharge to home with some home health once adequately recovered and medically stable.
[2019-10-19] MEDS: METOPROLOL TARTRATE 50 MG TAB PO SCH ×2 (08:10→21:22)
[2019-10-19] MEDS: FERROUS GLUCONATE 324 MG TAB PO SCH ×2 (08:10→17:34)
[2019-10-19] MEDS: ASCORBIC ACID 500 MG TAB PO SCH ×2 (08:10→17:34)
[2019-10-19] MEDS: TRAMADOL HCL 50 MG TABLET PO PRN (08:27)
[2019-10-19] MEDS: LOSARTAN POTASSIUM 50 MG TAB PO SCH (08:29)
[2019-10-19] MEDS: MULTIVITAMIN TAB PO SCH (08:29)
[2019-10-19] MEDS: DOCUSATE SODIUM 100 MG CAP PO SCH ×2 (08:29→21:22)
[2019-10-19] MEDS: ASPIRIN 81 MG ECTAB PO SCH ×2 (08:29→21:22)
--- NOTE | 2019-10-19 08:30 | Pharmacy Report ---
Pharmacy Glycemic Short Note 2 - Date of Service October 19, 2019 - Glycemic Short BSG Results (Last 24 hours): 10/18/19 10/18/19 10/18/19 09:12 12:59 17:23 Glucose POC Glucose 146 H 131 H 167 H 10/18/19 10/19/19 10/19/19 20:35 05:19 08:21 Glucose 142 H POC Glucose 186 H 173 H OUTPATIENT ANTIDIABETIC REGIMEN: * Lantus 18 units HS, Metformin 1000 mg BID, Exenatide 2 mg weekly (per records last taken 10/15) * A1c = 7.8 % 09/26/2019 ASSESSMENT: * ADITHYA is a 79 year old male POD #1 s/p left TKA * BSGs ranging 131-186 mg/dL yesterday * Received 26 units of insulin (18 units of basal, 8 units of prandial/correctional) PLAN FOR INPATIENT GLYCEMIC CONTROL: * Hold outpatient oral diabetes medications * Consider restarting metformin tomorrow * Basal insulin - continue home dose * Lantus 18 units SQ HS * Bolus insulin - tighten * NovoLog per scale ACHS or Q6hrs while NPO * Goal Range: Low 110 mg/dL - High 140 mg/dL * Correction Factor: 20 mg/dL/unit * Nutritional / Prandial insulin per carb ratio of 1 unit per 7 grams CHO consumed PLAN FOR DISCHARGE: * A1c goal of less than 8% may be reasonable for this patient based on age and comorbidities * Reasonable to continue home regimen upon discharge
[2019-10-19] MEDS: INSULIN ASPART 100 UNITS/ML 3 ML PEN SC SCH ×4 (08:32→21:23)
[2019-10-19] MEDS ORDERED: VITAMIN B COMPLEX TAB PO SCH (09:00)
[2019-10-19] MEDS ORDERED: MULTIVITAMIN TAB PO SCH (09:00)
[2019-10-19] MEDS: SENNA 8.6 MG TAB PO SCH (21:22)
[2019-10-19] MEDS: INSULIN GLARGINE SOLOSTAR 100 UNITS/ML 3 ML PEN SC SCH (21:23)
[2019-10-20] MEDS: KETOROLAC TROMETHAMINE 15 MG/ML VIAL IV SCH ×2 (04:59→11:15)
[2019-10-20] MEDS: ACETAMINOPHEN 500 MG TAB PO SCH ×2 (04:59→13:04)
[2019-10-20] MEDS: FERROUS GLUCONATE 324 MG TAB PO SCH (07:48)
[2019-10-20] MEDS: ASCORBIC ACID 500 MG TAB PO SCH (07:48)
--- NOTE | 2019-10-20 08:38 | Progress Notes ---
DATE: 10/20/2019 SUBJECTIVE: A 79-year-old gentleman postop day 2 from a left knee replacement. He is doing pretty well. Pain is controlled. Therapy went pretty well. No chest pain or shortness of breath. Not feeling dizzy or lightheaded. OBJECTIVE: VITAL SIGNS: Temperature 37.0. Vital signs stable. GENERAL: Shows a pleasant elderly male. He is lying in bed, looks pretty comfortable. EXTREMITIES: Examination of the left leg reveals the dressing to be clean, dry and intact. Leg is well aligned. He can dorsiflex and plantarflex his foot appropriately. He is neurologically intact. ASSESSMENT: A 79-year-old gentleman postoperative day 2 from a left knee replacement, doing pretty well. Pain is controlled. He is neurologically intact. PLAN: 1. DVT prophylaxis including thigh-high TEDs, SCDs, and aspirin twice a day. 2. PT/OT. Weight bear as tolerated. Left total knee protocol. 3. Pain control, doing well with current pain regimen. 4. Disposition: Plan to discharge to home with some home health likely later today.
[2019-10-20] MEDS: TRAMADOL HCL 50 MG TABLET PO PRN (09:02)
[2019-10-20] MEDS: DOCUSATE SODIUM 100 MG CAP PO SCH (09:10)
[2019-10-20] MEDS: LOSARTAN POTASSIUM 50 MG TAB PO SCH (09:10)
[2019-10-20] MEDS: MULTIVITAMIN TAB PO SCH (09:11)
[2019-10-20] MEDS: ASPIRIN 81 MG ECTAB PO SCH (09:11)
[2019-10-20] MEDS: METOPROLOL TARTRATE 50 MG TAB PO SCH (09:11)
[2019-10-20] MEDS: INSULIN ASPART 100 UNITS/ML 3 ML PEN SC SCH ×2 (09:13→12:54)
--- NOTE | 2019-10-25 15:46 | Discharge Summary ---
Date of Service October 25, 2019 Admission HPI Per Admitting Provider Documented in the H&P Admission Exam (Per Admitting) Constitutional Documented in the H&P Discharge Data Consultations 10/18/19 13:54 Consult Case Management - Discharge Planning Routine Procedures Performed Operation Date: 10/18/19 10:40 Actual Procedures p Left Total Knee Arthroplasty(Left) - Ovidio Corado MD Hospital Course (1) Status post total left knee replacement: 79-year-old male admitted on 10/18/2019 and underwent total knee replacement. He tolerated the procedure well and there were no complications. He was transferred to the PACU postoperatively and later to the orthopedic for further care. He was given Ancef for antibiotic prophylaxis. He was given ELEANOR stockings, SCDs, and aspirin for DVT prophylaxis. His hemoglobin, hematocrit, and vital signs were monitored during his hospital stay remained stable. He had some mild postoperative anemia but did not require any blood transfusions. He received an iron supplement. There were no complications. By postoperative day 2 he is tolerating a diabetic diet. His pain was controlled with oral pain medicine is participating in physical therapy. On postop day 2 he was discharged home and set up with home health services. He is given printed discharge instructions as well as new prescriptions for Exer strength Tylenol, iron supplement, aspirin, and tramadol. Continue physical therapy. Continue ELEANOR stockings. He is weightbearing as tolerated. Follow-up proximately 2 weeks postop or sooner if any problems or concerns. Coding Level of Care Code None Diagnoses Status post total left knee replacement Z96.652
== END 2019-10-20 13:32 | disposition home health service (06) ==
LOC: 3E 08:43 → ASU 08:43